=== PATIENT | male | born 2000 | race Caucasian/White ===

== ENCOUNTER 2021-02-28 20:34 | Emergency (ER) | payer OTHER, SELFPAY ==
--- NOTE | 2021-02-28 | ECG_ITS ---
Test Reason : CP Blood Pressure : / mmHG Vent. Rate : 052 BPM Atrial Rate : 052 BPM P-R Int : 130 ms QRS Dur : 088 ms QT Int : 394 ms P-R-T Axes : 057 037 032 degrees QTc Int : 366 ms Sinus bradycardia with sinus arrhythmia Early repolarization Otherwise normal ECG When compared with ECG of 27-MAR-2011 16:18, No significant changes seen Referred By: Generic ED Physician Electronically Signed By:Ken Cates
--- NOTE | ~2021-02-28 | CT_ITS ---
EXAMINATION: CT ANGIOGRAM OF THE CHEST WITH AND WITHOUT CONTRAST (CT PULMONARY ANGIOGRAM FOR PE) CLINICAL INFORMATION: Reason for Exam chest pain, diaphoresis COMPARISON: Radiograph 02/28/2021 TECHNIQUE: Prior to contrast administration, noncontrast localization images were obtained. Subsequently, multidetector volumetric imaging was performed from the thoracic inlet to below the diaphragms following the administration of 65 mL Omnipaque 350 intravenous contrast. No contrast reaction reported Sagittal, coronal, and MIP oblique sagittal reformatted images were obtained on the CT workstation, uploaded to PACS, and reviewed. This CT examination was performed using dose optimization techniques as appropriate, variously including the following: *Automated exposure control *Adjustment of mA and/or kV according to patient size (this includes techniques or standardized protocols for targeted exams where dose is matched to indication/reason for exam; i.e. extremities or head) *Use of iterative reconstruction technique Total exam dose-length product 286 mGy-cm FINDINGS: QUALITY OF STUDY/CONTRAST BOLUS: Satisfactory. PULMONARY ARTERIES: No central or segmental pulmonary emboli. THORACIC AORTA: No aneurysm or dissection. LUNG: No focal consolidation, nodules or masses. The central airways are patent. PLEURA: No pleural effusion or pneumothorax. MEDIASTINUM: Normal heart size. No pericardial effusion. No hilar or mediastinal lymphadenopathy. No evidence of septal bowing or right heart strain. CHEST WALL/AXILLA: No axillary or internal mammary lymphadenopathy. OSSEOUS STRUCTURES: No acute or suspicious osseous abnormality. UPPER ABDOMEN: Unremarkable. No reflux of contrast into the hepatic veins to suggest elevated right heart pressures. CT/CT angio chest PE protocol IMPRESSION: No pulmonary embolism or other acute intrathoracic abnormality. VTE: negative
--- NOTE | ~2021-02-28 | XR_ITS ---
EXAMINATION: XR CHEST CLINICAL INFORMATION: Chest pain COMPARISON: None TECHNIQUE: Frontal view of the chest was obtained. FINDINGS: No significant abnormality is noted involving the heart, lungs, mediastinum, bony thorax or soft tissues. XR/XR chest 1V IMPRESSION: Unremarkable examination.
[2021-02-28 20:45] VITALS: BP 148/69; PULSE 59; RESP 16; TEMP 36.6; O2SAT 98; BMI 25.0
[2021-02-28 22:19] VITALS: BP 120/71; PULSE 50; RESP 18; O2SAT 98
--- NOTE | 2021-02-28 22:37 | ED.CHESTPAIN ---
HPI - Chest Pain General Chief Complaint: Chest Pain Stated Complaint: Chest discomfort Time Seen by Provider: 02/28/21 22:19 Source: patient Mode of arrival: ambulatory History of Present Illness HPI narrative: 20-year-old male without significant past medical history who presents with onset of pinching/sharp left-sided chest pain that started approximately 7:00 p.m. this evening and states that it radiated into the right side of his chest and became worse with deep breathing and is associated with diaphoresis, nausea but denies any dizziness. In addition, patient denies any recent travel but states he has been drinking and smoking marijuana the previous evening. In addition, he endorses that he has a positive family history with an uncle who recently otherwise healthy but had an CT. Related Data Allergies Allergy/AdvReac Type Severity Reaction Status Date / Time morphine [MORPHINE] Allergy Severe ANAPHYLAXIS Unverified 07/26/20 17:41 morphine Allergy Unknown anaphylaxis Uncoded 03/23/13 00:00 Review of Systems Review of Systems: Pertinent positives and negatives as stated in HPI 10 point review systems is otherwise negative. PMFSH Past Medical History Source: nursing notes reviewed Medical History No known health problems Surgical History History of appendectomy Social History Social History Alcohol intake: current Alcohol intake frequency: a few times a month Alcohol type: beer Smoked in Last 30 Days: No Substance Use Type: Marijuana Substance Use Frequency: Daily Last Used Substance: Hours (ago) Advance Directives: No Physical Exam Vital Signs: Vital Signs: Last Vital Signs Temp 98.5 F 02/28/21 23:53 Pulse 53 03/01/21 02:17 Resp 16 03/01/21 02:17 BP 135/75 03/01/21 02:17 Pulse Ox 99 03/01/21 02:17 Body Mass Index 25.0 VITAL SIGNS: Reviewed. GENERAL: Well developed, well nourished, in no acute distress. HEAD: Normocephalic/atraumatic EYES: PERRLA, EOMI NOSE: Nares patent bilateral OROPHARYNX: no oral lesions noted, posterior pharynx clear NECK: Supple, no adenopathy LUNGS: Normal breath sounds. No adventitious sounds or accessory muscle use. SpO2<98> CARDIOVASCULAR: Regular rate and rhythm without noted murmurs ABDOMEN: Soft, non-tender, non-distended with bowel sounds. NEUROLOGIC: Alert and oriented x 4. Course Course Course Narrative: 20-year-old male with history and clinical presentation consistent with likely acid reflux secondary to alcohol consumption versus GERD and unlikely to be pneumonia/PE/cardiac ischemia and doubt pericarditis. On review of all investigations patient's D-dimer was noted to be elevated and subsequent CTA was negative for PE. Patient was informed of all results and discharged in stable condition. MDM - Chest Pain Lab Data Result diagrams: 03/01/21 01:00 Labs: Lab Results 02/28/21 03/01/21 03/01/21 Range/Units 23:05 00:01 01:00 D-Dimer 326 NG/ML Sodium 139 (135-145) mmol/L Potassium 4.2 (3.3-5.1) mmol/L Chloride 104 (96-108) mmol/L Carbon Dioxide 26 (22-29) mmol/L Anion Gap 13 (12-20) BUN 15 (9-16) mg/dL Creatinine 1.05 (0.5-1.4) mg/dL Estim Creat Clear Calc 104.0 Estimated GFR > 60 Random Glucose 86 (60-115) mg/dL Calcium 9.8 (8.4-10.2) mg/dL Troponin I High Sens < 3.5 (<3.5-35.0) ng/L ECG Data ECG #1: Attestation: I personally reviewed and interpreted this ECG as follows: Prior ECG tracings: available for review (03/27/2011) Interpretation: Sinus bradycardia, HR -52, no evidence of acute ischemia, WV/QRS/QTC are within normal limits. Discharge Plan Discharge Clinical Impression: Atypical chest pain, Acid reflux Patient Disposition: Home, Self-Care Instructions: Chest Pain (ED), Gastroesophageal Reflux Disease (ED), Diet for Stomach Ulcers and Gastritis (ED) Additional Instructions: Recommend [id number] Mylanta as directed on the outside packaging prior to meals to assist in further alleviation of your symptoms. Do not hesitate to return to the emergency department for any acute worsening of symptoms.
[2021-02-28 23:40] LABS: Troponin-I High Sensitivity < 3.5 ng/L (<3.5-35.0)
[2021-02-28 23:53] VITALS: BP 120/71; PULSE 86; RESP 17; TEMP 36.9; O2SAT 99
[2021-03-01 00:29] LABS: D Dimer 326 NG/ML
[2021-03-01 01:41] LABS: Anion Gap 13 (12-20); Blood Urea Nitrogen 15 mg/dL (9-16); Calcium 9.8 mg/dL (8.4-10.2); Carbon Dioxide 26 mmol/L (22-29); Chloride 104 mmol/L (96-108); Estimated Glomerular Filt Rate > 60; Glucose Random 86 mg/dL (60-115); Potassium 4.2 mmol/L (3.3-5.1); Sodium 139 mmol/L (135-145)
[2021-03-01 02:17] VITALS: BP 135/75; PULSE 53; RESP 16; O2SAT 99
[2021-03-01] MEDS: iohexoL 350 MG/ML 100 ML INFUS..BTL 65 ML IV (02:18)
== END 2021-03-01 03:06 | disposition home or self-care (01) ==
PROVIDERS: Emergency Provider Student in an Organized Health Care Education/Training Program; PCP Pediatrics
DX: R07.89 Other chest pain (principal); K21.9 Gastro-esophageal reflux disease without esophagitis; F12.90 Cannabis use, unspecified, uncomplicated
CPT/HCPCS: 36415; 71045; 71275; 80048; 84484; 85379; 93005; 99284; Q9967

== ENCOUNTER 2021-03-08 08:39 | Emergency (ER) | payer OTHER, SELFPAY ==
--- NOTE | ~2021-03-08 | XR_ITS ---
EXAMINATION: XR CHEST CLINICAL INFORMATION: Left-sided chest pain COMPARISON: Chest radiograph 02/28/2021 TECHNIQUE: 2 views of the chest were obtained. FINDINGS: The lungs are clear. There is no pneumothorax, airspace consolidation, pleural reaction, or effusion. The costophrenic sulci are clear. There is no airspace consolidation or groundglass opacity. The heart is normal in size. The hilar and mediastinal contours and bony structures are unremarkable. XR/XR chest 2V IMPRESSION: Unremarkable examination.
[2021-03-08 08:52] VITALS: BP 133/69; PULSE 57; RESP 18; TEMP 36.6; O2SAT 97; BMI 25.0
--- NOTE | 2021-03-08 09:06 | ECG_ITS ---
Test Reason : SOB Blood Pressure : / mmHG Vent. Rate : 052 BPM Atrial Rate : 052 BPM P-R Int : 134 ms QRS Dur : 090 ms QT Int : 410 ms P-R-T Axes : 058 038 030 degrees QTc Int : 381 ms Sinus bradycardia with sinus arrhythmia Otherwise normal ECG When compared with ECG of 28-FEB-2021 20:56, No significant change was found Referred By: Gianna Driver Electronically Signed By:TRACY TURPIN MD
--- NOTE | 2021-03-08 09:26 | ED.CHESTPAIN ---
HPI - Chest Pain General Chief Complaint: Upper Respiratory Symptoms Stated Complaint: SOB Time Seen by Provider: 03/08/21 08:57 Source: patient Mode of arrival: ambulatory Limitations: no limitations History of Present Illness HPI narrative: 20-year-old male with no significant past medical history with a past surgical history of an appendectomy presenting to the ED with complaints of left-sided chest pain that he describes as a pinching/sharp in sensation for the past 8 days. Patient was seen here on 02/28/2021 for same complaint. He reports the pain initially started in the midsternal chest and has radiated to the left chest/left axillary area and intermittently the pain intensifies. He reports when the pain intensifies he feels like he cannot catch his breath. He reports his left arm feels cold. He reports he also felt a pain in his left side of his neck yesterday. Reports he smokes marijuana daily and occasionally socially drinks alcohol. Denies drinking alcohol within the past few days. He denies any diaphoresis, fevers, chills, headaches, dizziness, orthopnea, dyspnea on exertion, palpitations, radiation of the chest pain to the back, back pain, nausea/vomiting/diarrhea, abdominal pain, constipation, lower extremity edema or calf tenderness, dysuria, hematuria, abnormal penile discharge or any other symptoms complaints or concerns at this time. 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 Denies history of cancer. Denies hypercoagulation disorder. Denies being on any estrogen. Denies recent surgery or immobilization. Patient denies being on any blood thinners. Patient denies any additional drug usage including cocaine. Patient was seen here on 02/28/2021 for same complaint and had a full workup including CTA of chest which was negative for PE or any other acute processes. MD complaint: chest pain Onset (ago): day(s) (Eight days) Timing of current episode: constant and still present Prior episodes: No Onset: other (Cannot recall) Pain location: substernal and left chest Pain radiation: other (Left axillary) Severity: moderate Quality: sharp (Pinching sensation) Relieving factors: nothing Exacerbating factors: nothing Associated symptoms: other (See above) Treatment prior to arrival: none Related Data Previous Rx's Medication Instructions Recorded diazepam [Valium] 5 mg PO TID PRN #14 tab 03/08/21 naproxen 500 mg PO BID PRN #10 tab 03/08/21 Allergies Allergy/AdvReac Type Severity Reaction Status Date / Time morphine [MORPHINE] Allergy Severe ANAPHYLAXIS Verified 03/08/21 09:15 morphine Allergy Unknown anaphylaxis Uncoded 03/23/13 00:00 Review of Systems Review of Systems: Constitutional : No Weight loss, No Fever, No Chills, No Night Sweats, No Fatigue, No Malaise ENT/Mouth : No Hearing loss, No Ear Pain, No Nasal Congestion, No Sinus Pain, No Hoarseness, No sore throat, No Rhinorrhea, No Swallowing Difficulty Eyes: No Eye Pain, No Swelling, No Redness, No Foreign Body, No Discharge, No Vision Changes Cardiovascular : + Chest Pain, + SOB, no Dyspnea on Exertion, No Orthopnea, No Edema, No extremity swelling, No Palpitations Respiratory : No Cough, No Sputum, No Wheezing, No Dyspnea Gastrointestinal : No Nausea, No Vomiting, No Diarrhea, No abdominal Pain, No Hematochezia, No Melena Genitourinary : No irregular bleeding, No Dysuria, No Urinary Frequency, No Hematuria, No Urinary Incontinence, No Urgency, No Flank Pain, No Urinary Flow Changes, No Hesitancy Musculoskeletal : No joint pain, No Myalgias, No Joint Swelling Skin : No Skin Lesions, No rash Neuro : No Weakness, No Numbness, No Paresthesias, No Loss of Consciousness, No Dizziness, No Headache Psych : No Anxiety/Panic, No Depression, No SI/HI/AH/VH Heme/Lymph: No Bruising, No Bleeding,No Lymphadenopathy Endocrine : No Polyuria, No Polydipsia, No Temperature Intolerance Yes all other systems are reviewed and are negative [facility] Past Medical History Attestation statement: The following information was validated with the patient. Medical History No known health problems Surgical History History of appendectomy Social History Social History Alcohol intake: current Alcohol intake frequency: does not drink Alcohol type: beer Smoking Status: Never smoker Use of substances other than those prescribed or required for medical reasons: Yes Substance Use Type: Marijuana Advance Directives: No Advance Directives Information Provided: No Physical Exam Vital Signs: Vital Signs: Last Vital Signs Temp 98 F 03/08/21 08:52 Pulse 49 L 03/08/21 14:06 Resp 16 03/08/21 14:06 BP 108/66 03/08/21 14:06 Pulse Ox 99 03/08/21 14:06 Body Mass Index 25.0 vital signs have been reviewed as normal and appeared to be correct. Blood pressure normal. Heart rate normal. Respiration rate normal. Temperature normal. Oxygen saturation normal. Appearance: Alert. Oriented X3. No acute distress. Head: Normal external exam. Normocephalic. Eyes: PERRLA. EOMI. Conjunctiva and sclera normal. Eyelids normal. ENT: Pharynx normal. Uvula midline. Moist mucous membranes. Neck: Normal inspection. Neck supple. FROM. No adenopathy. No meningeal signs. CVS: Normal heart rate and rhythm. Heart sound normal. No murmurs noted. Pulses normal throughout. Respiratory: No respiratory distress. Painless inspiration. Breath sounds normal. No wheezes/rales/rhonchi noted. Chest mild ttp to left chest wall No accessory muscle usage noted or decreased air movement noted. No rashes/lesion/signs of infection. Abdomen: Soft and nontender. Nondistended. No guarding. No rigidity. Bowel sounds normal in all 4 quadrants. No distention noted. No organomegaly noted. No visible injury noted. No rebound tenderness. Negative Rovsing sign. Negative obturator's sign. Negative psoas sign. Negative Collins sign. Back: Full range of motion noted. Skin: Skin warm and dry. Normal skin color. Normal skin turgor. No rashes/lesions/lacerations noted. Extremities: No lower extremity edema, No Calf tenderness, Extremities exhibit normal range of motion. Extremities nontender. Neuro: Oriented X 3. No motor deficit. No sensory deficit. Reflexes normal. Normal steady gait. Course Course Course Narrative: 14pm - labs obtained and patient had an elevated BUN and creatinine at 24/1.55 therefore he received 2 L of IV fluids and now his BUN and creatinine is 20/1.22. Most likely this was SPENCER related to dehydration. All other labs are within normal limits including troponin. - EKG was sinus bradycardia with sinus arrhythmia no acute ischemic changes were noted. - chest x-ray was negative for any acute processes. - patient reported mild symptomatic relief with the Flexeril therefore will DC home with symptomatic treatment instructions return if any new or worsening symptoms follow-up with primary care provider. Patient agrees with this plan. MDM - Chest Pain MDM Narrative Medical decision making narrative: 9:05am - 20 year old male with no significant past medical history he only uses marijuana and occasionally drinks presenting to the ED with complaints of left-sided chest pain for the past 8 days with associated shortness of breath. - on exam patient is alert and oriented x3. Not in any acute distress. No focal neuro deficits noted. Vital signs are stable within normal limits. Lungs clear to auscultation. CV RRR. Patient has left-sided reproducible chest tenderness. No rashes or signs of infection noted. - Concern for muscle strain versus costochondritis versus AK - less concern for PE as patient already had a CTA 8 days ago which was negative for PE or any other acute processes - Plan: Labs, chest x-ray, EKG. Provide naproxen and Valium then re-evaluate. Medical Records Data Attestation: I reviewed the patient's medical records. Lab Data Attestation: I reviewed the patient's lab results. Result diagrams: 03/08/21 09:59 03/08/21 13:13 Labs: Lab Results 03/08/21 03/08/21 03/08/21 Range/Units 09:55 09:58 09:58 WBC (4.8-10.8) X10*3/uL RBC (4.60-5.80) X10*6/uL Hgb (14.0-18.0) g/dl Hct (42-52) % MCV (80-98) fL MCH (27.0-33.0) pg MCHC (31.0-36.0) g/dl RDW (11.0-16.0) % Plt Count (160-400) X10*3/uL MPV (9.4-12.4) fL Immature Gran % (Auto) (0.0-0.4) % Neut % (Auto) (45-73) % Lymph % (Auto) (20-40) % [place] % (Auto) (2-11) % Eos % (Auto) (0-4) % Baso % (Auto) (0-2) % Lymph # (Auto) (1.2-4.9) X10*3/uL [place] # (Auto) (0.1-1.2) X10*3/uL Eos # (Auto) (0.0-0.4) X10*3/uL Baso # (Auto) (0.0-0.2) X10*3/uL Abs Immat Gran (auto) (0.00-0.03) X10*3/uL Absolute Neuts (auto) (2.0-8.3) X10*3/uL Absolute Nucleated RBC (0.0-0.012) X10*3/uL Nucleated RBC % (auto) (0.0-0.2) /100WBC PT 12.9 (10.8-13.0) SEC INR 1.1 (0.9-1.1) Sodium (135-145) mmol/L Potassium (3.3-5.1) mmol/L Chloride (96-108) mmol/L Carbon Dioxide (22-29) mmol/L Anion Gap (12-20) BUN (9-16) mg/dL Creatinine (0.5-1.4) mg/dL Estim Creat Clear Calc Estimated GFR Random Glucose (60-115) mg/dL Calcium (8.4-10.2) mg/dL Magnesium 2.4 (1.6-2.6) mg/dL Total Bilirubin 0.3 (0.0-1.0) mg/dL Direct Bilirubin < 0.2 (0.0-0.5) mg/dL AST 15 (5-37) U/L ALT 13 (0-40) U/L Alkaline Phosphatase 64 (39-117) U/L Troponin I High Sens (<3.5-35.0) ng/L Total Protein 7.5 (6.5-8.0) g/dL Albumin 4.4 (3.5-5.0) g/dL Coronavirus (PCR) NEGATIVE (Negative) Influenza Type A (PCR) NEGATIVE (Negative) Influenza Type B (PCR) NEGATIVE (Negative) RSV RNA Qual (PCR) NEGATIVE (Negative) 03/08/21 03/08/21 03/08/21 Range/Units 09:58 09:58 09:59 WBC 10.8 (4.8-10.8) X10*3/uL RBC 5.41 (4.60-5.80) X10*6/uL Hgb 15.2 (14.0-18.0) g/dl Hct 46.6 (42-52) % MCV 86.1 (80-98) fL MCH 28.1 (27.0-33.0) pg MCHC 32.6 (31.0-36.0) g/dl RDW 13.2 (11.0-16.0) % Plt Count 257 (160-400) X10*3/uL MPV 9.6 (9.4-12.4) fL Immature Gran % (Auto) 0.3 (0.0-0.4) % Neut % (Auto) 58.9 (45-73) % Lymph % (Auto) 30.0 (20-40) % [place] % (Auto) 9.0 (2-11) % Eos % (Auto) 1.3 (0-4) % Baso % (Auto) 0.5 (0-2) % Lymph # (Auto) 3.3 (1.2-4.9) X10*3/uL [place] # (Auto) 1.0 (0.1-1.2) X10*3/uL Eos # (Auto) 0.1 (0.0-0.4) X10*3/uL Baso # (Auto) 0.1 (0.0-0.2) X10*3/uL Abs Immat Gran (auto) 0.03 (0.00-0.03) X10*3/uL Absolute Neuts (auto) 6.4 (2.0-8.3) X10*3/uL Absolute Nucleated RBC 0.000 (0.0-0.012) X10*3/uL Nucleated RBC % (auto) 0.0 (0.0-0.2) /100WBC PT (10.8-13.0) SEC INR (0.9-1.1) Sodium 140 (135-145) mmol/L Potassium 4.0 (3.3-5.1) mmol/L Chloride 105 (96-108) mmol/L Carbon Dioxide 24 (22-29) mmol/L Anion Gap 15 (12-20) BUN 24 H D (9-16) mg/dL Creatinine 1.55 H (0.5-1.4) mg/dL Estim Creat Clear Calc 70.4 Estimated GFR 57 Random Glucose 93 (60-115) mg/dL Calcium 9.5 (8.4-10.2) mg/dL Magnesium (1.6-2.6) mg/dL Total Bilirubin 0.3 (0.0-1.0) mg/dL Direct Bilirubin (0.0-0.5) mg/dL AST 15 (5-37) U/L ALT 14 (0-40) U/L Alkaline Phosphatase 63 (39-117) U/L Troponin I High Sens < 3.5 (<3.5-35.0) ng/L Total Protein 7.6 (6.5-8.0) g/dL Albumin 4.4 (3.5-5.0) g/dL Coronavirus (PCR) (Negative) Influenza Type A (PCR) (Negative) Influenza Type B (PCR) (Negative) RSV RNA Qual (PCR) (Negative) 03/08/21 Range/Units 13:13 WBC (4.8-10.8) X10*3/uL RBC (4.60-5.80) X10*6/uL Hgb (14.0-18.0) g/dl Hct (42-52) % MCV (80-98) fL MCH (27.0-33.0) pg MCHC (31.0-36.0) g/dl RDW (11.0-16.0) % Plt Count (160-400) X10*3/uL MPV (9.4-12.4) fL Immature Gran % (Auto) (0.0-0.4) % Neut % (Auto) (45-73) % Lymph % (Auto) (20-40) % [place] % (Auto) (2-11) % Eos % (Auto) (0-4) % Baso % (Auto) (0-2) % Lymph # (Auto) (1.2-4.9) X10*3/uL [place] # (Auto) (0.1-1.2) X10*3/uL Eos # (Auto) (0.0-0.4) X10*3/uL Baso # (Auto) (0.0-0.2) X10*3/uL Abs Immat Gran (auto) (0.00-0.03) X10*3/uL Absolute Neuts (auto) (2.0-8.3) X10*3/uL Absolute Nucleated RBC (0.0-0.012) X10*3/uL Nucleated RBC % (auto) (0.0-0.2) /100WBC PT (10.8-13.0) SEC INR (0.9-1.1) Sodium 140 (135-145) mmol/L Potassium 4.1 (3.3-5.1) mmol/L Chloride 110 H (96-108) mmol/L Carbon Dioxide 24 (22-29) mmol/L Anion Gap 10 L (12-20) BUN 20 H (9-16) mg/dL Creatinine 1.22 (0.5-1.4) mg/dL Estim Creat Clear Calc 89.5 Estimated GFR > 60 Random Glucose 90 (60-115) mg/dL Calcium 8.3 L D (8.4-10.2) mg/dL Magnesium (1.6-2.6) mg/dL Total Bilirubin (0.0-1.0) mg/dL Direct Bilirubin (0.0-0.5) mg/dL AST (5-37) U/L ALT (0-40) U/L Alkaline Phosphatase (39-117) U/L Troponin I High Sens (<3.5-35.0) ng/L Total Protein (6.5-8.0) g/dL Albumin (3.5-5.0) g/dL Coronavirus (PCR) (Negative) Influenza Type A (PCR) (Negative) Influenza Type B (PCR) (Negative) RSV RNA Qual (PCR) (Negative) Imaging Data Chest x-ray: Attestation: I personally reviewed and interpreted this imaging study as follows: Radiologist's impression: FINDINGS: The lungs are clear. There is no pneumothorax, airspace consolidation, pleural reaction, or effusion. The costophrenic sulci are clear. There is no airspace consolidation or groundglass opacity. The heart is normal in size. The hilar and mediastinal contours and bony structures are unremarkable. XR/XR chest 2V IMPRESSION: Unremarkable examination. ECG Data ECG #1: Attestation: I personally reviewed and interpreted this ECG as follows: ECG interpretation date: 03/08/21 ECG interpretation time: 09:23 Interpretation: Sinus bradycardia with sinus arrhythmia with ventricular rate of 52 with a normal [place] interval normal QRS duration normal QT/QTC interval. No acute ischemic changes noted. Similar when compared to prior EKG on 02/28/2021. Critical Care Time Critical Care Time Critical Care Time: Yes Total Critical Care Time: 60 Attestation: I personally attest to this time spent taking care of the patient Discharge Plan Discharge Clinical Impression: Acute chest wall pain, Acute dehydration Patient Disposition: Home, Self-Care Instructions: Dehydration (ED), Chest Wall Pain (ED) Additional Instructions: Your repeat kidney function is within normal limits. Continue to drink plenty of fluids such as water or Gatorade. Return if any new or worsening symptoms and follow up with her primary care provider. Prescriptions: New diazepam [Valium] 5 mg tablet 5 mg PO TID PRN (Reason: muscle spasm) Qty: 14 RF: 0 naproxen 500 mg tablet 500 mg PO BID PRN (Reason: pain) Qty: 10 RF: 0 Referrals: Terrell Colvin [Primary Care Provider] - 2 days Stand Alone Forms: Work/School Release Print Language: Ukrainian
[2021-03-08] MEDS: NaPROXEN 500 MG TABLET PO (09:50)
[2021-03-08] MEDS: diazePAM 5 MG TABLET PO (09:51)
[2021-03-08 10:03] LABS: MANUAL DIFF FLAG NO
[2021-03-08 10:05] VITALS: PULSE 62; O2SAT 99
[2021-03-08 10:09] LABS: INTERNATIONAL NORM RATIO 1.1 (0.9-1.1); Prothrombin Time 12.9 SEC (10.8-13.0)
[2021-03-08 10:09] LABS: Basophils Absolute Auto 0.1 X10*3/uL (0.0-0.2); Basophils Percent Auto 0.5 % (0-2); Eosinophils Absolute Auto 0.1 X10*3/uL (0.0-0.4); Eosinophils Percent Auto 1.3 % (0-4); Hematocrit 46.6 % (42-52); Hemoglobin 15.2 g/dl (14.0-18.0); Imm Gran Abs Auto 0.03 X10*3/uL (0.00-0.03); Imm Gran Pct Auto 0.3 % (0.0-0.4); Lymphocytes Absolute Auto 3.3 X10*3/uL (1.2-4.9); Mean Corpuscular HGB Conc 32.6 g/dl (31.0-36.0); Mean Corpuscular Hemoglobin 28.1 pg (27.0-33.0); Mean Corpuscular Volume 86.1 fL (80-98); Mean Platelet Volume 9.6 fL (9.4-12.4); Neutrophils Absolute Auto 6.4 X10*3/uL (2.0-8.3); Neutrophils Percent Auto 58.9 % (45-73); Platelet Count 257 X10*3/uL (160-400); Red Blood Count 5.41 X10*6/uL (4.60-5.80); Red Cell Distribution Width 13.2 % (11.0-16.0); White Blood Count 10.8 X10*3/uL (4.8-10.8)
[2021-03-08 10:30] LABS: Alanine Aminotransferase 14 U/L (0-40); Albumin Level 4.4 g/dL (3.5-5.0); Alkaline Phosphatase 63 U/L (39-117); Anion Gap 15 (12-20); Aspartate Amino Transferase 15 U/L (5-37); Bilirubin Total 0.3 mg/dL (0.0-1.0); Blood Urea Nitrogen 24 mg/dL (9-16); Calcium 9.5 mg/dL (8.4-10.2); Carbon Dioxide 24 mmol/L (22-29); Chloride 105 mmol/L (96-108); Creatinine Clr Calc Pharmacy 70.4; Estimated Glomerular Filt Rate 57; Glucose Random 93 mg/dL (60-115); Sodium 140 mmol/L (135-145); Total Protein 7.6 g/dL (6.5-8.0)
[2021-03-08 10:31] LABS: Alanine Aminotransferase 13 U/L (0-40); Albumin Level 4.4 g/dL (3.5-5.0); Alkaline Phosphatase 64 U/L (39-117); Aspartate Amino Transferase 15 U/L (5-37); Bilirubin Direct < 0.2 mg/dL (0.0-0.5); Bilirubin Total 0.3 mg/dL (0.0-1.0); Magnesium 2.4 mg/dL (1.6-2.6); Total Protein 7.5 g/dL (6.5-8.0)
[2021-03-08 10:38] LABS: Troponin-I High Sensitivity < 3.5 ng/L (<3.5-35.0)
[2021-03-08 10:44] LABS: Influenza A PCR NEGATIVE (Negative); Influenza B PCR NEGATIVE (Negative); Resp Syncy Virus RNA Qual PCR NEGATIVE (Negative); SARS COV2 PCR INHOUSE NEGATIVE (Negative)
[2021-03-08 11:02] VITALS: BP 117/77; PULSE 50; RESP 20
[2021-03-08] MEDS: 0.9 % Sodium Chloride 1,000 ML 999 ML IVCONT ×2 (11:14→11:57)
[2021-03-08 13:55] LABS: Anion Gap 10 (12-20); Blood Urea Nitrogen 20 mg/dL (9-16); Calcium 8.3 mg/dL (8.4-10.2); Carbon Dioxide 24 mmol/L (22-29); Chloride 110 mmol/L (96-108); Creatinine Clr Calc Pharmacy 89.5; Estimated Glomerular Filt Rate > 60; Glucose Random 90 mg/dL (60-115); Potassium 4.1 mmol/L (3.3-5.1); Sodium 140 mmol/L (135-145)
[2021-03-08 14:06] VITALS: BP 108/66; PULSE 49; RESP 16; O2SAT 99
== END 2021-03-08 14:25 | disposition home or self-care (01) ==
PROVIDERS: Physician Assistant Medical; Emergency Provider Emergency Medicine; PCP Pediatrics
DX: R07.89 Other chest pain (principal); E86.0 Dehydration; R00.1 Bradycardia, unspecified; Z20.822 Contact with and (suspected) exposure to COVID-19; F12.90 Cannabis use, unspecified, uncomplicated
CPT/HCPCS: 0241U; 36415; 71046; 80048; 80053; 80076; 82248; 83735; 84484; 85025; 85610; 93005; 96360; 99285; 99291

== ENCOUNTER → 2023-07-01 14:21 | Outpatient (BNVA) | payer OTHER, SELFPAY | PROVIDERS: PCP Pediatrics; Visit Provider Physician Assistant Medical | DX: S39.012A Strain of muscle, fascia and tendon of lower back, initial encounter (principal); X50.0XXA Overexertion from strenuous movement or load, initial encounter | CPT/HCPCS: 99202 ==

== ENCOUNTER → 2023-07-03 11:06 | Outpatient (BNVA) | payer OTHER, SELFPAY | PROVIDERS: PCP Pediatrics; Visit Provider Physician Assistant Medical | DX: S39.012A Strain of muscle, fascia and tendon of lower back, initial encounter (principal); X50.0XXA Overexertion from strenuous movement or load, initial encounter | CPT/HCPCS: 99213 ==

== ENCOUNTER → 2023-07-07 11:12 | Outpatient (BNVA) | payer OTHER, SELFPAY | PROVIDERS: PCP Pediatrics; Visit Provider Physician Assistant Medical | DX: S33.9XXA Sprain of unspecified parts of lumbar spine and pelvis, initial encounter (principal); X50.0XXA Overexertion from strenuous movement or load, initial encounter | CPT/HCPCS: 99213 ==

== ENCOUNTER 2023-07-09 10:56 | Outpatient (RCR) | payer OTHER, SELFPAY ==
--- NOTE | 2023-07-09 11:37 | MHC.PT.EP ---
[facility] [place] Office [place] Office [place] Office [address] Yordan Zapata [address] [phone] F: [phone] F: [phone] F: [phone] F: [phone] Physical Therapy Plan of Care Date of Evaluation: Date of Surgery: Diagnosis: LS strain Assessment: 22 y/o male referred to PT with lumbar strain from work connection. 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 Examination shows limited lumbar AROM, slightly limited hip ER AROM, decreased HS/hip flexor/piriformis length, decreased core/hip strength, (+) JIMMY/squish tests, R anterior innominate, hypomobile and painful lumbar spine accessory mobilty, and pain. Recommend PT 2x/week for 4 weeks to address impairments, implement hEP, and optimize functional mobility. 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 Manual therapy to restore motion and function. Therapeutic exercise to improve strength and flexibility. Neuromuscular re-education for posture and balance. Therapeutic activities to return to functional activities of daily living. Electronically signed by: Maia Park PT Please sign and return to therapist. Thank you for your referral.
--- NOTE | 2023-08-20 08:40 | MHC.PT.DC ---
[facility] [place] [facility] [place] [facility] [place] Office [address] Yordan Zapata [address] [phone] F: [phone] F: [phone] F: [phone] F: [phone] Physical Therapy Discharge Report Diagnosis: LS strain Date of Surgery: Date of Evaluation: 07/09/23 Date of Discharge: 08/20/23 Treatments to Date: 1 Cancellations to Date: 0 No Shows to Date: 0 Discharge Status: Patient Elected to Stop Discharge Summary: Pt had to cancel initial treatment sessions following evaluation d/t having COVID. Then he called to self discharge after seeing MD and RTW. D/c chart at this time Electronically signed by: Maia Park PT Please sign and return to therapist. Thank you for your referral.
== END 2023-08-20 08:41 | disposition home or self-care (01) ==
LOC: HO.PT 10:56
PROVIDERS: Visit Provider Physician Assistant Medical
DX: S39.012D Strain of muscle, fascia and tendon of lower back, subsequent encounter (principal)
CPT/HCPCS: 97110; 97140; 97161

== ENCOUNTER → 2023-07-22 12:33 | Outpatient (BNVA) | payer OTHER, SELFPAY | PROVIDERS: Visit Provider Physician Assistant Medical | DX: S39.012D Strain of muscle, fascia and tendon of lower back, subsequent encounter (principal); X50.0XXD Overexertion from strenuous movement or load, subsequent encounter | CPT/HCPCS: 99213 ==

== ENCOUNTER 2023-10-28 12:38 | Emergency (ER) | payer OTHER, SELFPAY ==
--- NOTE | ~2023-10-28 | XR_ITS ---
EXAMINATION: XR CHEST CLINICAL INFORMATION: Chest pain COMPARISON: 03/08/2021 TECHNIQUE: Frontal view of the chest was obtained. FINDINGS: No significant abnormality is noted involving the heart, lungs, mediastinum, bony thorax or soft tissues. XR/XR chest 1V IMPRESSION: Unremarkable examination.
--- NOTE | 2023-10-28 12:41 | ECG_ITS ---
Test Reason : CHEST PAIN Blood Pressure : / mmHG Vent. Rate : 059 BPM Atrial Rate : 059 BPM P-R Int : 134 ms QRS Dur : 092 ms QT Int : 426 ms P-R-T Axes : 057 021 003 degrees QTc Int : 421 ms Sinus bradycardia with sinus arrhythmia Otherwise normal ECG When compared with ECG of 08-MAR-2021 09:32, No significant change was found Referred By: Generic ED Physician Electronically Signed By:TRACY TURPIN MD
[2023-10-28 13:14] VITALS: BP 150/81; PULSE 56; RESP 19; TEMP 36.6; O2SAT 98; BMI 29.0
[2023-10-28 13:16] LABS: MANUAL DIFF FLAG NO
[2023-10-28 13:17] LABS: Basophils Percent Auto 0.5 % (0-2); Eosinophils Absolute Auto 0.2 X10*3/uL (0.0-0.4); Eosinophils Percent Auto 2.1 % (0-4); Hematocrit 44.3 % (42.0-52.0); Hemoglobin 14.7 g/dl (14.0-18.0); Imm Gran Abs Auto 0.02 X10*3/uL (0.00-0.03); Imm Gran Pct Auto 0.2 % (0.0-0.4); Lymphocytes Absolute Auto 2.1 X10*3/uL (1.2-4.9); Lymphocytes Percent Auto 24.2 % (20-40); Mean Corpuscular HGB Conc 33.2 g/dl (31.0-36.0); Mean Corpuscular Hemoglobin 27.6 pg (27.0-33.0); Mean Corpuscular Volume 83.1 fL (80.0-98.0); Mean Platelet Volume 9.6 fL (9.4-12.4); Monocytes Absolute Auto 0.8 X10*3/uL (0.1-1.2); Monocytes Percent Auto 9.4 % (2-11); Neutrophils Absolute Auto 5.4 x10*3/uL (2.0-8.3); Neutrophils Percent Auto 63.6 % (45-73); Platelet Count 268 X10*3/uL (160-400); Red Blood Count 5.33 X10*6/uL (4.60-5.80); Red Cell Distribution Width 13.6 % (11.0-16.0); White Blood Count 8.5 X10*3/uL (4.8-10.8)
--- NOTE | 2023-10-28 13:19 | ED_ITS ---
HPI - Chest Pain General Chief Complaint: Chest Pain Stated Complaint: Chest Pain x 2 Days Time Seen by Provider: 10/28/23 17:04 Source: patient Mode of arrival: ambulatory Limitations: no limitations History of Present Illness HPI narrative: Patient is a 23 year old assigned male at with no reported medical history presenting to the emergency department today with chest pain and a headache. Patient states that 2 days ago he was playing video games when he noticed central chest pain and a headache. Patient states that nothing makes it worse and nothing makes it better. Patient denies any dizziness, lightheadedness, abdominal pain, nausea, vomiting, fever, chills, blurry vision, double vision, loss of vision, difficulty breathing, shortness of breath, back pain, night sweats, pain with urination, increased urinary frequency, increased urinary urgency, blood in his urine or stool, syncope or a near syncopal episode, recent trauma or falls, bowel incontinence, bladder incontinence, bowel retention, bladder retention, or any other complaints at this time. MD complaint: chest pain Onset (ago): day(s) (2) Pain radiation: none Related Data Previous Rx's Medication Instructions Recorded diazepam 5 mg tablet (Valium) 5 mg PO TID PRN muscle spasm #14 03/08/21 tabs cyclobenzaprine 10 mg tablet 10 mg PO TID PRN muscle spasm #14 07/01/23 tabs naproxen 500 mg tablet 500 mg PO BID PRN pain #14 tabs 07/01/23 Allergies Allergy/AdvReac Type Severity Reaction Status Date / Time morphine [MORPHINE] Allergy Severe ANAPHYLAXIS Verified 10/28/23 13:14 morphine Allergy Unknown anaphylaxis Uncoded 10/28/23 13:14 Review of Systems 2 Constitutional: Constitutional: Reports no additional constitutional complaints, Denies chills, Denies fever(s), Reports headache(s) and Denies night sweats Eyes: Eyes: Reports no additional eye complaints, Denies blurry vision, Denies change in vision, Denies diplopia, Denies eye discharge, Denies loss of vision and Denies eye pain ENT: Denies dizziness and Reports headache(s) Cardiovascular: Cardiovascular: Reports no additional cardiovascular complaints, Reports chest pain, Denies lightheadedness, Denies Loss of Consciousness and Denies dyspnea Respiratory: Respiratory: Reports no additional respiratory complaints and Denies dyspnea Gastrointestinal: Gastrointestinal: Reports no additional gastrointestinal complaints, Denies abdominal pain, Denies melena, Denies hematochezia, Denies change in bowel habits and Denies change in stool character Genitourinary: Genitourinary: Reports no additional male genitourinary complaints, Denies hematuria, Denies oliguria, Denies difficulty urinating, Denies dysuria, Denies urinary frequency, Denies urinary hesitancy, Denies urinary incontinence and Denies urinary urgency Musculoskeletal: Musculoskeletal: Reports no additional musculoskeletal complaints, Denies numbness and Denies tingling Neurologic: Denies dizziness, Reports headache(s), Denies loss of vision, Denies numbness and Denies tingling Psychiatric: Psychiatric: Reports no additional psychiatric complaints Endocrine: Endocrine: Reports no additional endocrine complaints Hematologic/Lymphatic: Hematologic/Lymphatic: Reports no additional hematologic/lymphatic complaints Allergic/Immunologic: Allergic/Immunologic: Reports no additional allergic/immunologic complaints PMFSH Past Medical History Attestation statement: The following information was validated with the patient. Source: old records reviewed and nursing notes reviewed Medical History No known health problems Surgical History History of appendectomy Social History Social History Alcohol intake: current Alcohol intake frequency: does not drink Alcohol type: beer Substance Use Type: Marijuana Advance Directives: No Advance Directives Information Provided: No Physical Exam 2 Vital Signs: Vital Signs: Last Vital Signs Temp 98 F 10/28/23 13:14 Pulse 58 10/28/23 17:02 Resp 18 10/28/23 17:02 BP 117/61 10/28/23 17:02 Pulse Ox 98 10/28/23 17:02 O2 Del Method Room Air 10/28/23 17:02 BMI result Body Mass Index 29.0 Const: General: cooperative, no acute distress, alert and awake Nutritional Appearance: well nourished Orientation/consciousness: patient oriented x3 Limitations: no limitations HEENT: Head: Yes normal to inspection and Yes atraumatic Ears: hearing grossly normal bilaterally and external ears normal General nose exam: Normal external nose present, no nasal discharge noted and no epistaxis Face and sinus: Yes normal facial exam, No abrasion and No laceration Mouth: Normal oral and palatal mucosa present, no drooling and no muffled voice Eyes: General: appearance normal, both eyes and all related structures P eriorbital: periorbital findings normal Eyelids: Yes eyelids normal C onjunctivae: conjunctivae normal Pupils: Equal, round and reactive pupils present EOM: EOMs intact bilaterally Neck: Neck: Yes normal visual inspection, Yes full ROM and Yes no lymphadenopathy Chest: Chest palpation & inspection: normal inspection of the chest Resp: Effort & Inspection: normal respiratory effort and able to speak in complete sentences Auscultation: clear to auscultation bilaterally Cardio: Rate: regular rate Rhythm: regular rhythm GI: Inspection: Yes normal to inspection Neuro: General: patient oriented x3 and moves all extremities Cranial nerves: Yes Equal, round and reactive pupils present Cognition (Neuro): n ormal cognition Motor exam (neuro): 5/5 motor strength present throughout Sensory Exam: Normal double simultaneous stimulation for sensation C oordination: [id number] test normal Extrem: General: Yes normal to inspection, Yes full ROM and Yes capillary refill normal Psych: Appearance: grossly normal Mental Status: mental status grossly normal Affect: normal affect Attitude: cooperative Thought process: N ormal thought process present Thought content: Normal thought content present Insight: Good insight present (Psych) Course Course Course Narrative: RME: 23 yold female presents to the ED for chest pain tingling in all extremites, headache, and SoB for the past two day. patient states mild cough. labs and ekg, chest xray ordered. Medical Decision Making Medical Decision Making [facility] Narrative: Patient is a 23 year old assigned male at with no reported medical history presenting to the emergency department today with chest pain and a headache. Patient's physical exam was unremarkable. Patient's blood work was unremarkable. Patient's EKG was unremarkable. Patient's chest x-ray showed no acute process. I explained my physical exam findings as well as all test results to the patient. I answered all questions asked by the patient. I stressed the importance of the patient taking his medication as prescribed. I stressed the importance of the patient following up with his primary care provider. I stressed the importance of the patient returning to the emergency department immediately if his symptoms were to worsen or if he were to develop any dizziness, shortness of breath, difficulty breathing, chest pain, blurry vision, loss of vision, nausea, vomiting, abdominal pain, fever, chills, back pain, or any other complaints. Patient verbalized agreement and understanding with this treatment plan and discharge. Differential Diagnosis Differential Diagnoses: The differential diagnosis associated with the presentation includes Chest pain NSTEMI STEMI Viral illness COVID-19 Influenza RSV Admission/Observation Consideration of admission/observation: Escalation of care including admission/observation considered Patient would have been admitted to the hospital had his work up had any findings where hospital admission was appropriate and his clinical presentation warranted hospital admission. Lab Data [facility] Lab Attestation statement: I reviewed the patient's lab results. My interpretation of these results are in the [facility] Rationale portion of this note. 10/28/23 13:11 10/28/23 13:11 Labs: Lab Results 10/28/23 10/28/23 Range/Units 13:11 17:11 WBC 8.5 (4.8-10.8) X10*3/uL RBC 5.33 (4.60-5.80) X10*6/uL Hgb 14.7 (14.0-18.0) g/dl Hct 44.3 (42.0-52.0) % MCV 83.1 (80.0-98.0) fL MCH 27.6 (27.0-33.0) pg MCHC 33.2 (31.0-36.0) g/dl RDW 13.6 (11.0-16.0) % Plt Count 268 (160-400) X10*3/uL MPV 9.6 (9.4-12.4) fL Immature Gran % (Auto) 0.2 (0.0-0.4) % Neut % (Auto) 63.6 (45-73) % Lymph % (Auto) 24.2 (20-40) % [place] % (Auto) 9.4 (2-11) % Eos % (Auto) 2.1 (0-4) % Baso % (Auto) 0.5 (0-2) % Lymph # (Auto) 2.1 (1.2-4.9) X10*3/uL [place] # (Auto) 0.8 (0.1-1.2) X10*3/uL Eos # (Auto) 0.2 (0.0-0.4) X10*3/uL Baso # (Auto) 0.0 (0.0-0.2) X10*3/uL Abs Immat Gran (auto) 0.02 (0.00-0.03) X10*3/uL Absolute Neuts (auto) 5.4 (2.0-8.3) x10*3/uL Absolute Nucleated RBC 0.000 (0.0-0.012) X10*3/uL Nucleated RBC % (auto) 0.0 (0.0-0.2) /100WBC Sodium 141 (135-145) mmol/L Potassium 3.6 (3.3-5.1) mmol/L Chloride 108 (96-108) mmol/L Carbon Dioxide 25 (22-29) mmol/L Anion Gap 12 (12-20) BUN 18 H (9-16) mg/dL Creatinine 1.25 (0.5-1.4) mg/dL Estim Creat Clear Calc 94.3 Estimated GFR > 60 Random Glucose 86 (60-115) mg/dL Calcium 9.5 D (8.4-10.2) mg/dL Troponin I High Sens < 2.7 (<3.5-35.0) ng/L Influenza Type A (PCR) NEGATIVE (Negative) Influenza Type B (PCR) NEGATIVE (Negative) RSV RNA Qual (PCR) NEGATIVE (Negative) SARS-CoV-2 RNA (RT-PCR) NEGATIVE (Negative) Independent Interpretation I performed an independent interpretation of an: EKG and Plain X-Ray Interpretation: My interpretation is in agreement with the radiologist's impression of this imaging study. - EXAMINATION: XR CHEST CLINICAL INFORMATION: Chest pain COMPARISON: 03/08/2021 TECHNIQUE: Frontal view of the chest was obtained. FINDINGS: No significant abnormality is noted involving the heart, lungs, mediastinum, bony thorax or soft tissues. XR/XR chest 1V IMPRESSION: Unremarkable examination. Dictated By: Michael Ahumada MD Signed By: Electronically signed by Michael Ahumada MD 10/28/23 1519 - Vent. Rate: 059 BPM Atrial Rate: 059 BPM P-R Int: 134 ms QRS Dur: 092 ms QT Int: 426 ms P-R-T Axes: 057 021 003 degrees QTc Int: 421 ms Sinus bradycardia with sinus arrhythmia Otherwise normal ECG When compared with ECG of 08-MAR-2021 09:32, No significant change was found Electronically Signed By:TADEO CURRY MD Dictated By: Tadeo Curry MD Signed By: Electronically signed by Tadeo Curry MD 10/28/23 9990 Radiology Impression Discussion of test interpretation with radiology: I have reviewed the radiologist's reading. Discharge Plan Discharge Clinical Impression: Viral illness Patient Disposition: Home, Self-Care Instructions: Viral Syndrome (ED) Additional Instructions: Follow up with your primary care provider. Return to the emergency department immediately if your symptoms worsen or if you develop any dizziness, shortness of breath, difficulty breathing, chest pain, blurry vision, loss of vision, nausea, vomiting, abdominal pain, fever, chills, back pain, or any other complaints. Prescriptions: No Action diazepam [Valium] 5 mg tablet 5 mg PO TID PRN (Reason: muscle spasm) Qty: 14 0RF naproxen 500 mg tablet 500 mg PO BID PRN (Reason: pain) Qty: 14 0RF cyclobenzaprine 10 mg tablet 10 mg PO TID PRN (Reason: muscle spasm) Qty: 14 0RF Ref[place]: [facility] [place]] (Call to establish and follow up with a primary care provider. If you already have a primary care provider, please follow up with them.) [facility] [Provider Group] (Call to establish and follow up with a primary care provider. If you already have a primary care provider, please follow up with them.) [facility] [Provider Group] (Call to establish and follow up with a primary care provider. If you already have a primary care provider, please follow up with them.) Stand Alone Forms: Work/School Release Interventions: ED Discharge Assessment Last Done: 10/28/23 18:27 Discharge Date/Time: 10/28/23 18:27 Print Language: Palauan
[2023-10-28 13:30] LABS: Anion Gap 12 (12-20); Blood Urea Nitrogen 18 mg/dL (9-16); Calcium 9.5 mg/dL (8.4-10.2); Carbon Dioxide 25 mmol/L (22-29); Chloride 108 mmol/L (96-108); Creatinine Clr Calc Pharmacy 94.3; Estimated Glomerular Filt Rate > 60; Glucose Random 86 mg/dL (60-115); Potassium 3.6 mmol/L (3.3-5.1); Sodium 141 mmol/L (135-145)
[2023-10-28 13:39] LABS: Troponin-I High Sensitivity < 2.7 ng/L (<3.5-35.0)
[2023-10-28 17:02] VITALS: BP 117/61; PULSE 58; RESP 18; O2SAT 98
[2023-10-28 18:02] LABS: Influenza A PCR NEGATIVE (Negative); Influenza B PCR NEGATIVE (Negative); Resp Syncy Virus RNA Qual PCR NEGATIVE (Negative); SARS COV2 PCR INHOUSE NEGATIVE (Negative)
== END 2023-10-28 18:27 | disposition home or self-care (01) ==
PROVIDERS: Physician Assistant Medical; Emergency Provider Emergency Medicine
DX: B34.9 Viral infection, unspecified (principal); R07.89 Other chest pain; R00.1 Bradycardia, unspecified; Z79.899 Other long term (current) drug therapy; Z20.822 Contact with and (suspected) exposure to COVID-19; Z20.828 Contact with and (suspected) exposure to other viral communicable diseases
CPT/HCPCS: 0241U; 36415; 71045; 80048; 84484; 85025; 93005; 99283; 99284

== ENCOUNTER → 2023-10-28 12:41 | Outpatient (BNV) | payer OTHER, SELFPAY | PROVIDERS: Emergency Provider Emergency Medicine; Visit Provider Internal Medicine Cardiovascular Disease | DX: R00.1 Bradycardia, unspecified (principal) | CPT/HCPCS: 93010 ==

== ENCOUNTER 2023-11-05 03:33 | Emergency (ER) | payer OTHER, SELFPAY ==
[2023-11-05 03:37] VITALS: BP 150/78; PULSE 70; RESP 16; TEMP 36.6; O2SAT 98; BMI 28.2
[2023-11-05 04:47] LABS: IDNOW Serial# 08D9AD1C; Strep A Nucleic Acid Negative (Negative)
[2023-11-05 04:52] LABS: COVID-19 Test Negative (Negative); IDNOW Serial# BCCEAD1C
[2023-11-05 04:53] LABS: IDNOW Serial# 9DB6401D; Influenza A Negative (Negative); Influenza B2 Negative (Negative)
--- NOTE | 2023-11-05 05:10 | ED.HA ---
HPI - Headache General Chief Complaint: Headache Stated Complaint: head pain Time Seen by Provider: 11/05/23 04:52 Source: patient Mode of arrival: ambulatory History of Present Illness HPI Narrative: 23M p/w headache that is unilateral(right) with some but is at the tibia but otherwise denies fever, chills, nausea, vomiting and denies any traumatic injury. No family history of migraines. Related Data Previous Rx's Medication Instructions Recorded diazepam 5 mg tablet (Valium) 5 mg PO TID PRN muscle spasm #14 03/08/21 tabs cyclobenzaprine 10 mg tablet 10 mg PO TID PRN muscle spasm #14 07/01/23 tabs naproxen 500 mg tablet 500 mg PO BID PRN pain #14 tabs 07/01/23 Allergies Allergy/AdvReac Type Severity Reaction Status Date / Time morphine [MORPHINE] Allergy Severe ANAPHYLAXIS Verified 11/05/23 04:10 morphine Allergy Unknown anaphylaxis Uncoded 11/05/23 04:10 Review of Systems Review of Systems: Pertinent positives and negatives as stated in HPI PMFSH Past Medical History Source: nursing notes reviewed Medical History No known health problems Surgical History History of appendectomy Social History Social History Alcohol intake: current Alcohol intake frequency: a few times a week Alcohol type: beer Smoked in Last 30 Days: Yes Use of substances other than those prescribed or required for medical reasons: Yes Substance Use Type: Marijuana Advance Directives: No Advance Directives Information Provided: No Physical Exam Vital Signs: Vital Signs: Last Vital Signs Temp 97.8 F 11/05/23 03:37 Pulse 60 11/05/23 05:51 Resp 14 11/05/23 05:51 BP 111/53 L 11/05/23 05:51 Pulse Ox 99 11/05/23 05:51 O2 Del Method Room Air 11/05/23 05:51 BMI result Body Mass Index 28.2 VITAL SIGNS: Reviewed. GENERAL: Well developed, well nourished, in no acute distress. HEAD: Normocephalic/atraumatic EYES: PERRLA, EOMI EARS: Ext canals without abnormality, TMs non-bulging and non-erythematous NOSE: Nares patent bilateral OROPHARYNX: no oral lesions noted, posterior pharynx clear and non-erythematous without noted tonsillar enlargement/erythema/exudates NECK: Supple, no adenopathy LUNGS: Normal breath sounds. No adventitious sounds or accessory muscle use. SpO2<99> CARDIOVASCULAR: Regular rate and rhythm without noted murmurs ABDOMEN: Soft, non-tender, non-distended with bowel sounds. MUSCULOSKELETAL: No tenderness, deformities, or effusions noted on gross inspection. EXTREMITIES: No cyanosis, clubbing or edema. SKIN: Inspection of the skin reveals no rashes NEUROLOGIC: Alert and oriented x 4. Strength and sensation to light touch were grossly intact x 4. Medications Administered Discontinued Medications Generic Name Dose Route Start Last Admin Trade Name Peterq PRN Reason Stop Dose Admin Acetaminophen 975 mg 11/05/23 04:24 11/05/23 05:27 Acetaminophen 325 Mg Tablet PO 11/05/23 04:25 975 mg ONCE ONE Administration Acetaminophen/Butalbital/Caffeine 1 tab 11/05/23 06:00 11/05/23 06:11 Butalb/Acetamin/Caff 50/325/40 Tablet PO 11/05/23 06:01 1 tab ONCE ONE Administration Ibuprofen 400 mg 11/05/23 04:24 11/05/23 05:27 Ibuprofen 400 Mg Tablet PO 11/05/23 04:25 400 mg ONCE ONE Administration Medical Decision Making Medical Decision Making [facility] Narrative: 23-year-old male with history and clinical presentation, DDX: General headache, migraine headache, viral illness, dehydration, no clinical suspicion for intracranial pathology I reviewed all investigations and hematologic indices are grossly within normal limits and there are no derangements. Chemistry indices are grossly within normal limits and there are no significant derangements. Viral testing is negative for COVID-19/influenza. In addition, strep is negative as well. Patient received 1 L of IV fluids, on 175 mg of Tylenol/400 mg of ibuprofen and a Fioricet and states that his pain has significantly improved down to 2/10. He is otherwise discharged home with recommendations for him to follow-up with his primary care provider. Differential Diagnosis Differential Diagnoses: The differential diagnosis associated with the presentation includes Please see the discussion Admission/Observation Consideration of admission/observation: Escalation of care including admission/observation considered Please see the discussion above Lab Data [facility] Lab Attestation statement: I reviewed the patient's lab results. Please see the discussion above 11/05/23 05:48 11/05/23 05:48 Labs: Lab Results 11/05/23 11/05/23 Range/Units 04:32 05:48 WBC 10.5 (4.8-10.8) X10*3/uL RBC 5.35 (4.60-5.80) X10*6/uL Hgb 14.7 (14.0-18.0) g/dl Hct 44.2 (42.0-52.0) % MCV 82.6 (80.0-98.0) fL MCH 27.5 (27.0-33.0) pg MCHC 33.3 (31.0-36.0) g/dl RDW 13.2 (11.0-16.0) % Plt Count 285 (160-400) X10*3/uL MPV 9.7 (9.4-12.4) fL Immature Gran % (Auto) 0.4 (0.0-0.4) % Neut % (Auto) 63.1 (45-73) % Lymph % (Auto) 26.1 (20-40) % [place] % (Auto) 7.8 (2-11) % Eos % (Auto) 2.0 (0-4) % Baso % (Auto) 0.6 (0-2) % Lymph # (Auto) 2.7 (1.2-4.9) X10*3/uL [place] # (Auto) 0.8 (0.1-1.2) X10*3/uL Eos # (Auto) 0.2 (0.0-0.4) X10*3/uL Baso # (Auto) 0.1 (0.0-0.2) X10*3/uL Abs Immat Gran (auto) 0.04 H (0.00-0.03) X10*3/uL Absolute Neuts (auto) 6.6 (2.0-8.3) x10*3/uL Absolute Nucleated RBC 0.000 (0.0-0.012) X10*3/uL Nucleated RBC % (auto) 0.0 (0.0-0.2) /100WBC Sodium 140 (135-145) mmol/L Potassium 3.9 (3.3-5.1) mmol/L Chloride 106 (96-108) mmol/L Carbon Dioxide 23 (22-29) mmol/L Anion Gap 15 (12-20) BUN 16 (9-16) mg/dL Creatinine 1.32 (0.5-1.4) mg/dL Estim Creat Clear Calc 88.2 Estimated GFR > 60 Random Glucose 110 (60-115) mg/dL Calcium 9.4 (8.4-10.2) mg/dL Total Bilirubin 0.2 (0.0-1.0) mg/dL AST 29 (5-37) U/L ALT 33 (0-40) U/L Alkaline Phosphatase 63 (39-117) U/L Total Protein 8.4 H (6.5-8.0) g/dL Albumin 4.3 (3.5-5.0) g/dL COVID-19 (NELIDA) Negative (Negative) COVID-19 Clin Com See Note Influenza Type A (ARIAS) Negative (Negative) Influenza Type B (ARIAS) Negative (Negative) Influenza A & B Note See Note S. pyogenes GrpA ARIAS Negative (Negative) External Record Review External record reviewed: Outpatient record, Prior outpatient labs and Prior outpatient radiology Discharge Plan Discharge Clinical Impression: Headache Patient Disposition: Home, Self-Care Instructions: General Headache (ED) Additional Instructions: 1. Tylenol 1000 mg, orally, every 6 hours as needed for pain control. Do not exceed 4000 mg within 24 hours. 2. Ibuprofen 400 mg, orally with milk or food, every 6 hours as needed for pain control. 3. Increase the amount of water intake. Be cautious with the amount of caffeine intake. Recommend to keep a headache journal 4. Follow-up with your primary care doctor. Return to the ER for any worsening symptoms. Prescriptions: No Action diazepam [Valium] 5 mg tablet 5 mg PO TID PRN (Reason: muscle spasm) Qty: 14 0RF naproxen 500 mg tablet 500 mg PO BID PRN (Reason: pain) Qty: 14 0RF cyclobenzaprine 10 mg tablet 10 mg PO TID PRN (Reason: muscle spasm) Qty: 14 0RF
[2023-11-05] MEDS: Acetaminophen 325 MG TABLET 975 MG PO (05:27)
[2023-11-05] MEDS: Ibuprofen 400 MG TABLET PO (05:27)
--- NOTE | 2023-11-05 05:36 | PC.NURSE ---
pt medicated according to mar. pt reports to this rn onset of blurred vision and R sided facial numbness. pt denies hx migraines reports hx anxiety. pt placed on manager cardiac. 20 g in placed in L ac. dr potts made aware
[2023-11-05 05:51] VITALS: BP 111/53; PULSE 60; RESP 14; O2SAT 99
[2023-11-05 05:57] LABS: MANUAL DIFF FLAG NO
[2023-11-05 05:58] LABS: Basophils Absolute Auto 0.1 X10*3/uL (0.0-0.2); Basophils Percent Auto 0.6 % (0-2); Eosinophils Absolute Auto 0.2 X10*3/uL (0.0-0.4); Hematocrit 44.2 % (42.0-52.0); Hemoglobin 14.7 g/dl (14.0-18.0); Imm Gran Abs Auto 0.04 X10*3/uL (0.00-0.03); Imm Gran Pct Auto 0.4 % (0.0-0.4); Lymphocytes Absolute Auto 2.7 X10*3/uL (1.2-4.9); Lymphocytes Percent Auto 26.1 % (20-40); Mean Corpuscular HGB Conc 33.3 g/dl (31.0-36.0); Mean Corpuscular Hemoglobin 27.5 pg (27.0-33.0); Mean Corpuscular Volume 82.6 fL (80.0-98.0); Mean Platelet Volume 9.7 fL (9.4-12.4); Monocytes Absolute Auto 0.8 X10*3/uL (0.1-1.2); Monocytes Percent Auto 7.8 % (2-11); Neutrophils Absolute Auto 6.6 x10*3/uL (2.0-8.3); Neutrophils Percent Auto 63.1 % (45-73); Platelet Count 285 X10*3/uL (160-400); Red Blood Count 5.35 X10*6/uL (4.60-5.80); Red Cell Distribution Width 13.2 % (11.0-16.0); White Blood Count 10.5 X10*3/uL (4.8-10.8)
[2023-11-05] MEDS: Butalb/Acetamin/Caff 50/325/40 TABLET 1 TAB PO (06:11)
[2023-11-05 06:19] LABS: Alanine Aminotransferase 33 U/L (0-40); Albumin Level 4.3 g/dL (3.5-5.0); Alkaline Phosphatase 63 U/L (39-117); Anion Gap 15 (12-20); Aspartate Amino Transferase 29 U/L (5-37); Bilirubin Total 0.2 mg/dL (0.0-1.0); Blood Urea Nitrogen 16 mg/dL (9-16); Calcium 9.4 mg/dL (8.4-10.2); Carbon Dioxide 23 mmol/L (22-29); Chloride 106 mmol/L (96-108); Creatinine Clr Calc Pharmacy 88.2; Estimated Glomerular Filt Rate > 60; Glucose Random 110 mg/dL (60-115); Potassium 3.9 mmol/L (3.3-5.1); Sodium 140 mmol/L (135-145); Total Protein 8.4 g/dL (6.5-8.0)
--- NOTE | 2023-11-05 07:23 | PC.NURSE ---
assumed care of pt at 0700. pt a&o x4, pleasant, calm, and cooperative. pt reports feeling much better, rating his migraine 1/10 pain. currently resting quietly on stretcher watching tv in no apparent distress. rr even/unlabored. call angel within reach. plan of care ongoing.
== END 2023-11-05 07:31 | disposition home or self-care (01) ==
PROVIDERS: Emergency Provider Student in an Organized Health Care Education/Training Program
DX: R51.9 Headache, unspecified (principal); Z11.52 Encounter for screening for COVID-19; Z20.822 Contact with and (suspected) exposure to COVID-19; Z79.899 Other long term (current) drug therapy
CPT/HCPCS: 36415; 80053; 85025; 87502; 87635; 87651; 99283; 99284

== ENCOUNTER 2024-08-04 13:52 | Emergency (ER) | payer OTHER, SELFPAY ==
--- NOTE | ~2024-08-04 | XR_ITS ---
EXAMINATION: XR CHEST CLINICAL INFORMATION: Chest pain. Pleurisy. COMPARISON: Chest x-ray October 28, 2023 TECHNIQUE: Frontal view of the chest was obtained. 3:17 PM FINDINGS: No significant abnormality is noted involving the heart, lungs, mediastinum, bony thorax or soft tissues. XR/XR chest 1V IMPRESSION: Unremarkable examination. Electronically signed by: Иван Guillory MD 08/04/2024 04:20 PM EDT
--- NOTE | 2024-08-04 14:01 | ECG_ITS ---
Test Reason : CP Blood Pressure : / mmHG Vent. Rate : 050 BPM Atrial Rate : 050 BPM P-R Int : 128 ms QRS Dur : 088 ms QT Int : 412 ms P-R-T Axes : 057 025 005 degrees QTc Int : 375 ms Sinus bradycardia Otherwise normal ECG When compared with ECG of 28-OCT-2023 13:06, No significant change was found Referred By: Generic ED Physician Electronically Signed By:ALEA MERCADO
[2024-08-04 14:47] VITALS: BP 120/71; PULSE 50; RESP 16; TEMP 36.6; O2SAT 99; BMI 27.6
--- NOTE | 2024-08-04 14:56 | ED_ITS ---
HPI - General Adult General Chief complaint: Chest Pain Stated complaint: Chest pain Time Seen by Provider: 08/04/24 19:34 Source: patient Mode of arrival: ambulatory Limitations: no limitations History of Present Illness ED Provider: jyotsna DURBIN narrative: Patient complaining of left chest pain sharp in character for last few days lasting only for few sec patient feels anxious as he joined in the new job Related Data Previous Rx's ?Medication ?Instructions ?Recorded diazepam 5 mg tablet (Valium) 5 mg PO TID PRN muscle spasm #14 03/08/21 tabs cyclobenzaprine 10 mg tablet 10 mg PO TID PRN muscle spasm #14 07/01/23 tabs naproxen 500 mg tablet 500 mg PO BID PRN pain #14 tabs 07/01/23 lorazepam 1 mg tablet (Ativan) 1 mg PO BEDTIME PRN anxiety/sleep 08/04/24 #10 tabs Allergies Allergy/AdvReac Type Severity Reaction Status Date / Time morphine [MORPHINE] Allergy Severe ANAPHYLAXIS Verified 08/04/24 14:47 morphine Allergy Unknown anaphylaxis Uncoded 08/04/24 14:47 Review of Systems 2 Review of Systems: Yes all other systems are reviewed and are negative [facility] Past Medical History Medical History No known health problems Surgical History History of appendectomy Social History Social History Alcohol intake: current Alcohol intake frequency: a few times a week Alcohol type: beer Substance Use Type: Marijuana Advance Directives: No Advance Directives Information Provided: No Do you have a plan to hurt others: No Plan Physical Exam ED Vital Signs: Vital Signs - 24 hr 08/04/24 14:47 08/04/24 19:36 08/04/24 20:20 Temperature 97.8 F 98.2 F 98.2 F Pulse Rate 50 44 L 53 Respiratory Rate 16 15 16 Blood Pressure 120/71 128/76 120/71 Pulse Oximetry 99 99 98 Oxygen Delivery Method Room Air Room Air Room Air BMI result Body Mass Index 27.6 Appearance: Alert. Oriented X3. No acute distress. Anxious Eyes: PERRLA, No Nystagmus ENT: Pharynx normal. Oral Mucosa moist Neck: Normal inspection. Neck supple. CVS: Normal heart rate and rhythm. Pulses normal. Respiratory: No respiratory distress. Equal air entry bilateral, no wheezing/rales/rhonchi Abdomen: Soft and nontender. Bowel sounds are present, no mass palpable, no CVA tenderness Skin: Skin warm and dry. Normal skin color. Normal skin turgor. Extremities: No lower extremity edema. No calf tenderness Neuro: Oriented X 3. No motor deficit. Course Course Course Narrative: RME: Done by ROMI Ramos. 23-year-old male presents to ED for chest pain, coughing up pink sputum, pleurisy, and tingling and extremities. Patient states it has been going on for 1 week. Patient denies any fever, chills, or body aches. Patient does admit to anxiety. Patient is not compliant with his Prozac for anxiety. Due to patient stating pleurisy and coughing up pink sputum will do a least a D-dimer and troponin. Medical Decision Making Differential Diagnosis Differential Diagnoses: The differential diagnosis associated with the presentation includes Anxiety/costochondritis/ACS Lab Data MDM Lab Attestation statement: I reviewed the patient's lab results. 08/04/24 15:48 08/04/24 15:48 Labs: Lab Results 08/04/24 Range/Units 15:48 WBC 9.4 (4.8-10.8) X10*3/uL RBC 5.32 (4.60-5.80) X10*6/uL Hgb 14.7 (14.0-18.0) g/dl Hct 45.2 (42.0-52.0) % MCV 85.0 (80.0-98.0) fL MCH 27.6 (27.0-33.0) pg MCHC 32.5 (31.0-36.0) g/dl RDW 14.2 (11.0-16.0) % Plt Count 290 (160-400) X10*3/uL MPV 9.9 (9.4-12.4) fL Immature Gran % (Auto) 0.2 (0.0-0.4) % Neut % (Auto) 60.8 (45-73) % Lymph % (Auto) 25.9 (20-40) % Wetzel % (Auto) 9.4 (2-11) % Eos % (Auto) 3.1 (0-4) % Baso % (Auto) 0.6 (0-2) % Lymph # (Auto) 2.4 (1.2-4.9) X10*3/uL Wetzel # (Auto) 0.9 (0.1-1.2) X10*3/uL Eos # (Auto) 0.3 (0.0-0.4) X10*3/uL Baso # (Auto) 0.1 (0.0-0.2) X10*3/uL Abs Immat Gran (auto) 0.02 (0.00-0.03) X10*3/uL Absolute Neuts (auto) 5.7 (2.0-8.3) x10*3/uL Absolute Nucleated RBC 0.000 (0.0-0.012) X10*3/uL Nucleated RBC % (auto) 0.0 (0.0-0.2) /100WBC PT 10.9 (10.9-12.4) SEC INR 0.9 (0.9-1.1) APTT 40.4 H (26.0-36.8) SEC D-Dimer High Sensitivty 217 NG/ML Sodium 140 (135-145) mmol/L Potassium 4.4 (3.3-5.1) mmol/L Chloride 106 (96-108) mmol/L Carbon Dioxide 27 (22-29) mmol/L Anion Gap 11 L (12-20) BUN 16 (9-16) mg/dL Creatinine 1.11 (0.5-1.4) mg/dL Estim Creat Clear Calc 104.0 Estimated GFR > 60 Random Glucose 84 (60-115) mg/dL Calcium 9.8 (8.4-10.2) mg/dL Total Bilirubin 0.3 (0.0-1.0) mg/dL AST 18 (5-37) U/L ALT 21 (0-40) U/L Alkaline Phosphatase 96 (39-117) U/L Troponin I High Sens < 2.7 (<3.5-35.0) ng/L B-Natriuretic Peptide < 10 (<100) pg/mL Total Protein 8.4 H (6.5-8.0) g/dL Albumin 4.5 (3.5-5.0) g/dL Influenza Type A (PCR) NEGATIVE (Negative) Influenza Type B (PCR) NEGATIVE (Negative) RSV RNA Qual (PCR) NEGATIVE (Negative) SARS-CoV-2 RNA (RT-PCR) NEGATIVE (Negative) Independent Interpretation I performed an independent interpretation of an: EKG Interpretation: Sinus bradycardia heart rate 50 beats per minute normal interval normal axis no acute ST T wave changes no acute ischemia Discharge Plan Discharge Clinical Impression: Atypical chest pain, Anxiety Patient Disposition: Home, Self-Care Instructions: Noncardiac Chest Pain (ED), Anxiety (ED) Additional Instructions: your chest pain likely from anxiety tale ativan at bed time as needed for sleep or Prescriptions: New lorazepam [Ativan] 1 mg tablet 1 mg PO BEDTIME PRN (Reason: anxiety/sleep) Qty: 10 0RF No Action diazepam [Valium] 5 mg tablet 5 mg PO TID PRN (Reason: muscle spasm) Qty: 14 0RF naproxen 500 mg tablet 500 mg PO BID PRN (Reason: pain) Qty: 14 0RF cyclobenzaprine 10 mg tablet 10 mg PO TID PRN (Reason: muscle spasm) Qty: 14 0RF Stand Alone Forms: Work/School Release Interventions: ED Discharge Assessment Last Done: 08/04/24 20:20 Discharge Date/Time: 08/04/24 20:20 Print Language: Tamazight
[2024-08-04 15:52] LABS: MANUAL DIFF FLAG NO
[2024-08-04 15:57] LABS: Basophils Absolute Auto 0.1 X10*3/uL (0.0-0.2); Basophils Percent Auto 0.6 % (0-2); Eosinophils Absolute Auto 0.3 X10*3/uL (0.0-0.4); Eosinophils Percent Auto 3.1 % (0-4); Hematocrit 45.2 % (42.0-52.0); Hemoglobin 14.7 g/dl (14.0-18.0); Imm Gran Abs Auto 0.02 X10*3/uL (0.00-0.03); Imm Gran Pct Auto 0.2 % (0.0-0.4); Lymphocytes Absolute Auto 2.4 X10*3/uL (1.2-4.9); Lymphocytes Percent Auto 25.9 % (20-40); Mean Corpuscular HGB Conc 32.5 g/dl (31.0-36.0); Mean Corpuscular Hemoglobin 27.6 pg (27.0-33.0); Mean Platelet Volume 9.9 fL (9.4-12.4); Monocytes Absolute Auto 0.9 X10*3/uL (0.1-1.2); Monocytes Percent Auto 9.4 % (2-11); Neutrophils Absolute Auto 5.7 x10*3/uL (2.0-8.3); Neutrophils Percent Auto 60.8 % (45-73); Platelet Count 290 X10*3/uL (160-400); Red Blood Count 5.32 X10*6/uL (4.60-5.80); Red Cell Distribution Width 14.2 % (11.0-16.0); White Blood Count 9.4 X10*3/uL (4.8-10.8)
[2024-08-04 16:02] LABS: INTERNATIONAL NORM RATIO 0.9 (0.9-1.1); Prothrombin Time 10.9 SEC (10.9-12.4)
[2024-08-04 16:04] LABS: D Dimer High Sensitivity 217 NG/ML; Partial Thromboplastin Time 40.4 SEC (26.0-36.8)
[2024-08-04 16:10] LABS: Alanine Aminotransferase 21 U/L (0-40); Albumin Level 4.5 g/dL (3.5-5.0); Alkaline Phosphatase 96 U/L (39-117); Anion Gap 11 (12-20); Aspartate Amino Transferase 18 U/L (5-37); Bilirubin Total 0.3 mg/dL (0.0-1.0); Blood Urea Nitrogen 16 mg/dL (9-16); Calcium 9.8 mg/dL (8.4-10.2); Carbon Dioxide 27 mmol/L (22-29); Chloride 106 mmol/L (96-108); Estimated Glomerular Filt Rate > 60; Glucose Random 84 mg/dL (60-115); Potassium 4.4 mmol/L (3.3-5.1); Sodium 140 mmol/L (135-145); Total Protein 8.4 g/dL (6.5-8.0)
[2024-08-04 16:16] LABS: B Type Natriuretic Peptide < 10 pg/mL (<100)
[2024-08-04 16:19] LABS: Troponin-I High Sensitivity < 2.7 ng/L (<3.5-35.0)
[2024-08-04 16:49] LABS: Influenza A PCR NEGATIVE (Negative); Influenza B PCR NEGATIVE (Negative); Resp Syncy Virus RNA Qual PCR NEGATIVE (Negative); SARS COV2 PCR INHOUSE NEGATIVE (Negative)
[2024-08-04 19:36] VITALS: BP 128/76; PULSE 44; RESP 15; TEMP 36.8; O2SAT 99
[2024-08-04 20:20] VITALS: BP 120/71; PULSE 53; RESP 16; TEMP 36.8; O2SAT 98
== END 2024-08-04 20:20 | disposition home or self-care (01) ==
PROVIDERS: Physician Assistant; Emergency Provider Internal Medicine
DX: R07.89 Other chest pain (principal); F41.9 Anxiety disorder, unspecified; R06.02 Shortness of breath; Z03.818 Encounter for observation for suspected exposure to other biological agents ruled out; Z79.899 Other long term (current) drug therapy
CPT/HCPCS: 0241U; 36415; 71045; 80053; 83880; 84484; 85025; 85379; 85610; 85730; 93005; 99283; 99284

== ENCOUNTER 2025-01-03 13:47 | Outpatient (AMB) | payer OTHER, SELFPAY ==
--- NOTE | 2025-01-03 13:54 | A.OFFVIS_ITS ---
Vital Signs 01/03/25 13:56 Height 5 ft 7 in Weight 181 lb BMI 28.3 BP 120/70 Blood Pressure Location Lt brachial Position Sitting Pulse 62 Pulse Source Pulse Oximeter Pulse Oximetry (%) 96 Oxygen Delivery Method Room Air Intake Visit Reasons: ENP-Headaches Intake Note: Patient presents [employer] migraine. Patient went to [place] [facility]. CT 12/04/23 on file under scanned referral Sharepoint Manager Required: No Accompanied by: Self / Same As Patient Allergies morphine [MORPHINE] Allergy (Severe, Verified 01/03/25 13:56) ANAPHYLAXIS morphine Allergy (Unknown, Uncoded 08/04/24 14:47) anaphylaxis Medication List - Last Reconciled 01/03/25 by Rae Abernathy, JUNE cyclobenzaprine 10 mg PO TID PRN diazepam (Valium) 5 mg PO TID PRN lorazepam (Ativan) 1 mg PO BEDTIME PRN naproxen 500 mg PO BID PRN HPI Comments Details: Right-handed 24-yr-old male pleasant effect as below pertinent denials presents for new pt evaluation of headache disorder. The patient is a 24-year-old male presenting with episodic migraine with aura. The headaches began at approximately 20 years of age without precipitating cause . The headaches are characterized by intense, right-sided, episodic pain with associated symptoms including nausea and sensory sensitivities. Although sporadic, they significantly impact the patient's daily life, necessitating bed rest in dark environments for relief. 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 The headache attacks provoke anxiety and fear, which prompted him to seek care in the ER. He has also had ER evaluations for chest discomfort, at times is associated with headache, but not always- workup for this has been unremarkable. Previous ER visits have yielded temporary relief with naproxen and a nasal spray, but these interventions have not significantly altered the course of the migraines. He has not previously seen neurology. Review of Systems - Neurological: Reports light and sound sensitivity. Endorses motion sickness as a child. Denies double vision. - Respiratory: Childhood history of asthma, resolved. - Gastrointestinal: Reports acid reflux and occasional constipation. - Psychological: Reports anxiety and ADHD. Pertinent denials include denies history of concussion, dizziness, double vision, neck injuries, HTN, HLD, clotting/bleeding disorders, endocrine disorders, history of seizure, thyroid or diabetes, kidney disease or kidney stones. Headache Review The patient is a 24-year-old male presenting with episodic migraine with aura. - Onset: Began at age 20. - Frequency: 3-4 times monthly. - Duration: 0.5 to several hours, never persistent throughout the day. - Location: Right-sided frontal through occipital region.. - Quality: Pressure and squeezing sensation. - Severity: Rated 5-6/10. - Aura: numbness and tingling in right arm and at times right leg. - Associated symptoms: Nausea, light and sound sensitivity, infrequent - Aggravating factors: Standing up. - Alleviating factors: Laying down in a dark room. - Treatment history: Limited effectiveness with naproxen, unspecified nasal spray, and Fioricet. Zofran helped with nausea but not headache. Headache Lifestyle Factors - Caffeine: Little to none. - Exercise: Minimal, not enough as per patient assessment. - Sleep: as below - Is hopeful to eventually start a family Sleep - Disorganized and irregular patterns. - Typically sleeps in chunks, 8:00 AM to 12:00 PM and 8:00 PM to 4:00 AM. - Reports 4 to 6 hours of total sleep duration. - Inconsistent sleep onset and maintenance, with frequent interruptions. - Has friends who live in [place], whom he plays video games with, which is a predominant reason for his altered sleep schedule. He plans to move to [place] by the end of this year, which he feels will help with this. ON LICENSE OF [facility] Medical History No known health problems Surgical History History of appendectomy Social History Alcohol intake: current Alcohol intake frequency: a few times a week Alcohol type: beer Substance Use Type: Marijuana Physical Exam Vital Signs: Last Vital Signs Pulse 62 01/03/25 13:56 BP 120/70 01/03/25 13:56 Pulse Ox 96 01/03/25 13:56 Oxygen Delivery Method Room Air 01/03/25 13:56 BMI result Body Mass Index 28.3 Const General: no acute distress Orientation/consciousness: patient oriented x3 HEENT Other: Mallampati stage Resp Effort & Inspection: normal respiratory effort and able to speak in complete sentences Cardio Rate: regular rate Rhythm: regular rhythm Neuro Other: No palpable scalp tenderness. Musculoskeletal- mild posterior cervical tightness noted, not significant. With negative bilateral Spurling. General: patient oriented x3 Cranial nerves: Yes CN's II-XII intact bilaterally Cognition (Neuro): normal cognition Gait exam (Neuro): Normal gait present Motor exam (neuro): 5/5 motor strength present throughout Deep tendon reflexes (DTR's): Right triceps reflex intensity grade: 2+, Left triceps reflex intensity grade: 2+, Rt Biceps (C5, C6): 2+, Left biceps reflex intensity grade: 2+, Right brachioradialis reflex intensity grade: 2+, Left brachioradialis reflex intensity grade: 2+, Right patellar reflex intensity grade: 2+ and Left patellar reflex intensity grade: 2+ Coordination: [id number] test normal, tandem gait normal and Romberg test negative Pupils: Normal pupillary reactivity/response: bilateral Psych Appearance: grossly normal Mental Status: mental status grossly normal Speech and movement: Clear speech present Affect: normal affect Attitude: cooperative Thought process: Normal thought process present Assessment & Plan Assessment & Plan (1) Right-sided headache: Comment: Likely episodic migraine with sensory aura Code(s): R51.9 - Headache, unspecified Category: Medical (2) Paresthesia of right arm and leg: Code(s): R20.2 - Paresthesia of skin Category: Medical Plan We have advised you to have the following exams: Brain MRI with and without contrast to assess for secondary etiologies of headache owing to right-sided paresthesia during headache attacks. Patient endorses claustrophobia, thus we will order alprazolam p.r.n. prior to MRI. Future considerations: Sleep study. 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 Thus, returned to workle without restriction tter written, signed, and given to patient in hand. For overall headache management: It is important to practice good self-care, including but not limited to eating a healthy diet, drinking enough fluids (typically 64 oz per day), maintaining a good sleep routine, and engaging in regular physical activity (typically 30-45 minutes of moderate physical activity 5 days per week). Patient advised to establish care with a psychotherapist. To help us better understand your headache: * Track headaches, especially after treatment plan changes. Migraine BuddiVimbly is one of many headache tracking apps you may use. To reduce light sensitivity: * Minimize blue light exposure by using blue light blocking devices, such as: Blue light filtering glasses, FL-41 orion tinted blue light filtering glasses, Blue light blocking screen protectors, Changing the blue light levels on your electronic devices. * Increasing green light exposure by using devices that increase green light exposure, such as wearing green lensed glasses or green light therapy lamps (such as the Allay Lamp). * Avoid wearing traditional sunglasses inside. To reduce noise sensitivity: * Minimize exposure to loud sounds and environments by using noise reduction/cancelling devices, such as foam ear plugs, noise reducing ear plugs (such as Loop Ear Plugs), or noise cancelling headphones. For acute headache treatment: It is important to take as needed acute medications at the first sign of headache, however you want to avoid taking most as needed headache too often as this can lead to medication overuse/adaptation headaches. Trial Sumatriptan 100mg tab, 1/2 - 1 tab (50-100mg) at onset of headache, may repeat in 2 hours. Max of 2 tabs (200mg) per 24 hours. May take sumatriptan with OTC Tylenol 650-1,000mg every 4-6 hours, Ibuprofen (liquid gels) 600mg every 6 hours, or Naproxen (liquid gels) 440mg q 12 hrs prn. We will refill ondansetron 4 mg p.o. every 4 hours p.r.n. nausea. Potential adverse effects of triptans, include but are not limited to nausea, fatigue, chest tightness/tingling (usually passes within a few minutes), medication overuse headaches. Previous acute migraine medication trials: Fioricet ineffective, naproxen- ineffective. A nasal spray given in the ER- limited effect Acute migraine medication contraindications: None at this time For headache prevention medication: Preventative medications should be taken routinely as prescribed for best effect, it may take several weeks to see full effect. Start Riboflavin 400mg daily in the morning. This likely will cause urine to become bright yellow, which is benign. Start Magnesium 400mg daily at bedtime. Potential side effects including abdominal discomfort, loose stools. Previous migraine prevention medication trials: None Migraine prevention medication contraindications: None Patient seen in collaboration with Dr. Jarrett. Patient was informed and verbally consented to the use of an ambient scribe for clinic note documentation during this visit. Will follow-up upon review of above and patient to follow-up in clinic in 6 months or sooner prn. Orders: Orders MR head/brain wo/w con Today R20.2 - Paresthesia of skin, R51.9 - Headache, unspecified Medications: New sumatriptan succinate (0.5 - 1 x 100 mg) 50 - 100 mg orally at onset of headache, may repeat in 2 hrs PRN; max 2 tabs per day or 4 tabs/week (may take with Aleve 440mg) 30 days 12 tabs 6RF migraine headache ondansetron HCl 4 mg PO Q4H 30 days PRN 20 tabs 3RF nausea and vomiting magnesium oxide may hold for loose stools 400 mg PO BEDTIME 30 days 30 tabs 6RF riboflavin (vitamin B2) 400 mg PO DAILY 30 days 30 tabs 6RF alprazolam 0.25 mg orally 1 tab 30 minutes prior to MRI, may repeat x's 1; 1 day 2 tabs 0RF Discontinued diazepam (Valium) Discontinued Reason: Patient no longer taking 5 mg PO TID PRN 14 tabs 0RF muscle spasm lorazepam (Ativan) Discontinued Reason: Patient Completed Course 1 mg PO BEDTIME PRN 10 tabs 0RF anxiety/sleep cyclobenzaprine Discontinued Reason: No Longer Medically Relevant 10 mg PO TID PRN 14 tabs 0RF muscle spasm Coding Level of Care Code New Pt Level 4 (19871) Diagnoses Right-sided headache R51.9 Paresthesia of right arm and leg R20.2
[2025-01-03 13:56] VITALS: BP 120/70; PULSE 62; O2SAT 96; BMI 28.3
--- OUTSIDE RECORDS SUMMARY | 2025-01-03 17:08 | XMS_ITS | Clinical Summary ---
Author Organization [facility] [address] [facility] Address [address] [place] [address] Phone Care Team Providers Care Branch Lending Manager Name Role Phone Caridad Dasilva MD Primary Care Pr ovider Allergies Active Allergy Reactions Criticality Noted Date Comments Morphine 09/03/2023 Medications FLUoxetine (PROzac) 20 mg capsule Take 1 capsule (20 mg total) by mouth 1 (one) time each day. 30 each 2 10/20/2024 Active hydrOXYzine HCL (ATARAX) 25 mg tablet Take 1 tablet (25 mg total) by mouth 2 (two) times a day if needed for anxiety. 60 each 1 10/20/2024 Active Active Problems Problem Noted Date Diagnosed Date Sinus bradycardia 10/27/2024 Assessment & Plan (10/28/2024 12:04 PM EST): Result of a sinus bradycardia, his AV conduction and QRS duration are normal. His cardia exam is otherwise unremarkable and he had a proper response to exercise. I will check TSH, sed rate. Orders: Ambulatory referral to Cardiology ECG 12 lead TSH; Future B-type natriuretic peptide; Future High sensitivity CRP; Future Lipid panel with reflex to direct LDL; Future Sedimentation rate, automated; Future Chest pain 10/27/2024 Assessment & Plan (10/28/2024 12:03 PM EST): He had no chest pain or ischemia EKG change with adequate exercise on the treadmill. He also has a low probability for ischemia heart disease at this age. We need to check lipid profile. Generalized anxiety disorder 09/03/2023 Mild depression 09/03/2023 Overweight (BMI 25.0-29.9) 09/03/2023 Panic attacks 09/03/2023 Rhinitis 09/03/2023 Encounters Date Type Department Care Team Description 10/28/2024 10:20 AM EST Office Visit [facility] - [address] [place] [address] Carlos Zacarias MD Chest pain, unspecified type (Primary Dx); Sinus bradycardia; Intermittent chest pain 10/20/2024 3:00 PM EST Office Visit Adult [address] [phone] Trihsa Hernandez PA Generalized anxiety disorder (Primary Dx); Panic attacks; Depression, unspecified depression type 10/20/2024 7:30 AM EST Ancillary Procedure [facility] [address] [place] [phone] Chest pain, unspecified from Last 3 Months Immunizations Name Administration Dates Next Due DTaP (Infanrix) 6wks to less than 7yo 03/09/2001 ,02/08/2000,1999 [id number]-[id number]-VJG (Pentacel) 2mo to less than 5yo 1999 DTaP-IPV (Kinrix; Quadracel) 4yo to less than 7yo 08/09/2003 HPV, Quadrivalent 09/27/2013,05/31/2013,03/23/20 13 Hepatitis A Pediatric (Havri x; Vaqta) 12mo to less than 19yo 03/23/2013,10/24/2011 Hepatitis B Pediatric (Enger ix B; Recombivax HB) to less than 20 yo 08/26/2002,05/09/2000,02/08/2000 HiB PRP-OMP conjugate (Pedva xhib) 6wks and older 02/08/2000,1999 IPV Inactivated polio (Ipol) 6wks and older 1999,1999 Influenza Quadravalent, MDCK , 0.5ml, preservative free (Flucelvax) 6mo and older 09/03/2023 Influenza trivalent, 0.5mL, preservative free (Fluarix; FluLaval; Fluzone) ages 6mo and older (Afluria) 3 years and older 11/18/2017,07/05/2015 MMR, measles mumps and rubel la Live (Priorix; M-M-R II) 12mo and older 08/09/2003,08/09/2000 Meningococcal B, Recombinant (Trumenba) 16yo to less than 24yo 11/18/2017 Meningococcal Conjugate (Men veo) MenACWY 11yo to less than 19 yo 11/18/2017,10/24/2011 Tdap Tetanus diptheria acell ular pertussis (Boostrix; Adacel) 7yo and older 11/18/2017,10/24/2011 Varicella live (Varivax) 12mo and older 04/13/20,08/26/2000 Surgical History Surgery Date Site/Laterality Comments APPENDECTOMY 2013 PROCEDURE: HISTORICAL APPENDECTOMY Family History Medical History Relation Name Comments Hypertension Mother Breast cancer Neg Hx Colon cancer Neg Hx Diabetes Neg Hx Prostate cancer Neg Hx Relation Name Status Comments Mother Social History Tobacco Use Types Packs/Day Years Used Date Smoking Tobacco: Former Cigarettes Q uit: 11/09/2014 Smokeless Tobacco: Former Tobacco Cessation:Counseling Given: Not Answered Alcohol Use Standard Drinks/Week Comments Yes 0 (1 standard drink = 0.6 oz pur e alcohol) Housing Instability Answer Date Recorde d Are you worried that in the next 2 months you may not have stable housing? No 10/20/2024 Food Access & Nutrition Answer Date Rec orded Do you have access to a vari ety of food including fruits and vegetables? Yes 10/20/2024 Access to Healthcare Answer Date Record ed Within the last 3 months, megan casas many times did you visit the emergency department for your medical care? 3 10/20/2024 Health Literacy Answer Date Recorded How often do you need to hav e someone help you when you read instructions, pamphlets, or other written material from your doctor or pharmacy? Rarely 10/20/2024 Caregiver: How often do you need to have someone help you when you read instructions, pamphlets, or other written material from your doctor or pharmacy? Not on file 10/20/2024 Financial Risk Answer Date Recorded How hard is it for you to pa y for the very basics like food, housing, medical care, and air conditioning / heating? Very hard 10/20/2024 Transportation Answer Date Recorded Has the lack of transportati on kept you from meetings, work, or from getting things needed for daily living? Yes Has the lack of transportati on kept you from medical appointments or from getting medications? Yes 10/20/2024 Social Isolation Answer Date Recorded How often do you feel lonely or isolated from th ose around you? Often 10/20/2024 Food Risk Answer Date Recorded Within the past 12 months we worried whether our food would run out before we got money to buy more. Sometimes true 024 Within the past 12 months th e food we bought just didn't last and we didn't have money to get more. Sometimes true 10/20/2024 Dependent Care Answer Date Recorded Do you need help finding or paying for care for your loved ones. For example, child development instructor or elderly care for an older adult? No 10/20/2024 Education Answer Date Recorded Do you think completing more education or training, like finishing a GED, going to college, or learning a trade, would be helpful for you? Yes 10/20/2024 Employment and Income Answer Date Recor ded During the last four weeks, have you been actively looking for work? Yes 10/20/2024 Living Situation Answer Date Recorded What is your living situation? 1 12/21/2023 Sex and Gender Information Value Date Recorded Sex Assigned at Not on file Legal Sex Male 11:34 PM EST Gender Identity Not on file Sexual Orientation Not on file Obstetrics History Last Filed Vital Signs Vital Sign Reading Time Taken Comments Blood Pressure 100/64 10/28/2024 10:11 AM EST Pulse 46 10/28/2024 10:11 AM EST Temperature 36.2 ??C (97.1 ??F) 10/20/2024 3:12 PM ES T Respiratory Rate 14 10/20/2024 3:12 PM EST Oxygen Saturation 97% 10/28/2024 10:11 AM EST Inhaled Oxygen Concentration - - Weight 84.8 kg (187 lb) 10/28/2024 10:11 AM EST Height 170.2 cm (5' 7 ) 10/28/2024 10:11 AM EST Body Mass Index 29.29 10/28/2024 10:11 AM EST Plan of Treatment Health Maintenance Due Date Last Done Comments Meningococcal B Vacine (2 of 2 - Trumenba SCDM 2-dose series) 05/18/2018 11/18/2017 HIV Screening 10/12/2022 Hepatitis C Screening 10/12/2022 COVID-19 Vaccine ( season) 2024 02/04/2021 Influenza Vaccine (#1) 2024 , 11/18/2017, 07/05/2015 Depression Screening 10/20/2025 10/20/2024 Social Influencers of Health Screening 10/20/2025 10/20/2024 DTaP,Tdap,and Td Vaccines (8 - Td or Tdap) 11/18/2027 11/18/2017, 10/24/2011, 08/30/2003, Additional history exists Cholesterol Screening (Lipid Panel) 10/28/2029 10/28/2024 HIB Vaccines Completed 03/24/2001, 02/09, 02/08/2000, Additional history exists Pneumococcal Vaccine: Pediatrics (0 to 5 Years) and At-Risk Patients (6 to 64 Years) Aged Out 03/24/2001 No longer eligible based on patient's age to complete this topic Hepatitis B Vaccines Completed 08/26/2002, 06/01/2000, 05/09/2000, Additional history exists IPV Vaccines Completed 08/30/2003, 11/2002, 03/24/2001, Additional history exists MMR Vaccines Completed 08/30/2003, 11/2002, 08/21/2000, Additional history exists Varicella Vaccines Completed 04/13/2012, 0 03/22/2008, 08/26/2000 Hepatitis A Vaccines Completed 03/23/2013, 10/24/20 11 HPV Vaccines Completed 09/27/2013, 05/10, 03/23/2013 Meningococcal ACWY Vaccine Completed 11/18/2017, RSV Immunization Patients Under 20 months Aged Out No longer eligible based on patient's age to complete this topic Procedures Procedure Name Priority Date/Time Associated Diagnosis Comments SEDIMENTATION RATE Routine 10/28/2024 11 :07 AM EST Sinus bradycardia LIPID PANEL WITH REFLEX TO DIRECT LDL Routine 10/28/2024 11:07 AM EST Sinus bradycardia C REACTIVE PROTEIN, HIGH SENSITIVITY Routine 10/28/2024 11:07 AM EST Sinus bradycardia B-TYPE NATRIURETIC PEPTIDE Routine 10/28/2024 11:07 AM EST Sinus bradycardia THYROID STIMULATING HORMONE Routine 10/28/2024 11:07 AM EST Sinus bradycardia ECG 12-LEAD Routine 10/28/2024 10:17 AM EST Sinus bradycardia Intermittent chest pain STRESS TEST ONLY EXERCISE Routine 10/20/2024 8:40 AM EST Chest pain, unspecified from Last 3 Months Results * (ABNORMAL) Lipid panel with reflex to direct LDL (10/28/2024 11:07 AM EST) Cholesterol 194 0 - 200 mg/dL LAB CHEMISTRY METHOD 10/28/2024 4:44 PM [facility] Triglycerides 102 0 - 150 mg/dL LAB CHEMISTRY METHOD 10/28/2024 4:44 PM [facility] HDL 47 >=40 mg/dL LAB CHEMISTRY METHOD 10/28/2024 4:44 PM [facility] LDL Calculated 127(H) 0 - 100 mg/dL LAB CHEMISTRY METHOD 10/28/2024 4:44 PM [facility] VLDL Cholesterol Eliot 20.4 mg/dL LAB CHEMISTRY METHOD 10/28/2024 4:44 PM [facility] Non HDL Chol. (LDL+VLDL) 147(H) <145 mg/dL LAB CHEMISTRY METHOD 10/28/2024 4:44 PM [facility] Chol/HDL Ratio 4.1 0.0 - 4.4 LAB CHEMISTRY METHOD 10/28/2024 4:44 PM EST [facility] Blood Venous blood specimen / Unknown Venipuncture / Unknown 10/28/2024 11:07 AM EST 10/28/2024 11:07 AM EST us Carlos Zacarias MD LAB BLOOD ORDERABLES Final Resul t Performing Organization Address City/[facility]/ZIP Co de Phone Number [facility] [address] [place] [address], [place] [phone] * Sedimentation rate, automated (10/28/2024 11:07 AM EST) Pathologist [facility] Sed Rate 14 0 - 15 mm/hr LAB HEMETOLOGY METHOD 10/28/2024 2:48 PM EST [facility] Blood Venous blood specimen / Unknown Venipuncture / Unknown 10/28/2024 11:07 AM EST 10/28/2024 11:07 AM EST us Carlos Zacarias MD LAB BLOOD ORDERABLES Final Resul t Performing Organization Address [facility] de Phone Number [facility] [address] [place] [address], [place] [phone] * High sensitivity CRP (10/28/2024 11:07 AM EST) CRP, High Sensitivity 2.32 mg/L LAB CHEMISTRY METHOD 10/28/2024 4:39 PM EST [facility] Comment: Cardio CRP Relative Risk Categories ?? Low ? <1.0 mg/L ?? Average ?? 1.0 - 3.0 mg/L ?? High ?>3.0 mg/L Levels >10.0 mg/L should be ignored and repeated when the patient is stable and infection or inflammation is ruled out. Blood Venous blood specimen / Unknown Venipuncture / Unknown 10/28/2024 11:07 AM EST 10/28/2024 11:07 AM EST us Carlos Zacarias MD LAB BLOOD ORDERABLES Final Resul t Performing Organization Address [facility] Co de Phone Number [facility] [address] [place] [address], [place] [phone] * TSH (10/28/2024 11:07 AM EST) Pathologist [facility] TSH 0.91 0.40 - 4.00 mcIU/mL LAB CHEMISTRY METHOD 10/28/2024 4:46 PM EST [facility] Blood Venous blood specimen / Unknown Venipuncture / Unknown 10/28/2024 11:07 AM EST 10/28/2024 11:07 AM EST us Carlos Zacarias MD LAB BLOOD ORDERABLES Final Resul t Performing Organization Address [facility] de Phone Number [facility] [address] [place] [address], [place] [phone] * B-type natriuretic peptide (10/28/2024 11:07 AM EST) [facility] BNP 30 <=100 pcg/mL LAB CHEMISTRY METHOD 10/28/2024 3:41 PM EST [facility] Blood Venous blood specimen / Unknown Venipuncture / Unknown 10/28/2024 11:07 AM EST 10/28/2024 11:07 AM EST us Carlos Zacarias MD LAB BLOOD ORDERABLES Final Resul t Performing Organization Address [facility] Co de Phone Number [facility] [address] [place] [address], [place] [phone] * ECG 12 lead (10/28/2024 10:17 AM EST) Ventricular Rate ECG 46 BPM GEMUSE Atrial Rate 46 BPM GEMUSE P-R Interval 124 ms GEMUSE QRS Duration 96 ms GEMUSE Q-T Interval 410 ms GEMUSE QTc 358 ms GEMUSE P Wave [place] 37 degrees GEMUSE R [place] 73 degrees GEMUSE T [place] 22 degrees GEMUSE ECG Interpretation Sinus bradycardia Otherwise normal ECG No previous ECGs available Confirmed by Noah ZACARIAS, CARLOS ([id number]) on 10/28/2024 11:42:26 AM GEMUSE 10/28/2024 10:1 7 AM EST 10/28/2024 11:42 AM EST Carlos Zacarias MD ECG ORDERABLES Final Result GEMUSE * Exercise stress test (10/20/2024 8:40 AM EST) Target HR 166 bpm CV STRESS ONLY Baseline HR 48 bpm CV STRES S ONLY Baseline SBP 125 mmHg CV STRE SS ONLY Baseline DBP 72 mmHg CV STRE SS ONLY O2 sat rest 96 % CV STRES S ONLY Peak HR 168 bpm CV STRESS ONLY Peak SBP 162 mmHg CV STRESS ONLY Peak DBP 70 mmHg CV STRESS ONLY Estimated workload 12.1 METS CV STRESS ONLY Rate Pressure Product 27,216.0 mmHg*bpm CV STRESS ONLY Percent HR 86 % CV STRESS ONLY Exercise/injec tion duration (min) 10 min CV STRESS ONLY Exercise/injec tion duration (sec) 43 sec CV STRESS ONLY Anatomical Region Laterality Modality Cardiac Diagnost ic Narrative 10/20/2024 1:17 PM EST ?Normal exercise EKG stress test. ?Exercise stress test was performed. Exercise capacity was average. Normal blood pressure response. Stress Findings A Иван protocol stress test was performed. Overall, the patient's exercise capacity was average. Total stress time was 10 min and 43 sec. The test was stopped because the patient experienced fatigue. Blood pressure demonstrated a normal response. Heart rate demonstrated a normal response. Patient reported right chest discomfort during peak exercise that resolved in early recovery. ECG 24 year old with atypical chest pain, no cardiac history. The ECG shows normal sinus rhythm. The baseline ECG has early repolarization. There were no arrhythmias during stress. There is no significant ST abnormalities during stress. There were no arrhythmias during recovery. Procedure Note Trisha Charles NP / Carlos Zacarias MD - 10/20/2024 ? ? Normal exercise EKG stress test. ? ? Exercise stress test was performed. Exercise capacity was average.Normal blood pressure response. us Trisha LLANOS CV STRESS PROCEDURES Final Re sult from Last 3 Months Insurance Care Teams Branch Lending Manager Relationship Specialty Start Date End Date Caridad Dasilva MD [address] [place] [address] [phone] PCP - General Internal Medicine 09/27/24
== END 2025-01-03 14:42 | disposition home or self-care (01) ==
PROVIDERS: Visit Provider Nurse Practitioner Family
DX: R51.9 Headache, unspecified (principal); R20.2 Paresthesia of skin
CPT/HCPCS: 99204

== ENCOUNTER 2025-01-13 13:09 | Outpatient (REF) | payer OTHER, SELFPAY ==
--- NOTE | ~2025-01-13 | MR_ITS ---
EXAMINATION: MR BRAIN WITHOUT AND WITH CONTRAST CLINICAL INFORMATION: Headache COMPARISON: None TECHNIQUE: Multiplanar, multisequence MRI of the brain was obtained before and after the intravenous administration of 8 mL of Gadavist. FINDINGS: There is no restricted diffusion seen to suspect any acute ischemia. There is no magnetic susceptibility artifact suspect acute or chronic hemorrhagic products or calcification. Radial white matter differences maintained normal with no abnormal T2 FLAIR signal seen. The lateral ventricles are symmetrical in size and configuration without enlargement. Normal flow-void signal seen in major cerebral vasculature. As contrast no abnormal intra-axial or extra-axial enhancement seen to suspect any lesion. There is no extra-axial collection. Scalp soft tissues are normal. No abnormality seen in posterior fossa. The paranasal sinuses and mastoid air cells are well-aerated. MR/MR head/brain wo/w con IMPRESSION: Unremarkable MRI brain without and with contrast. Electronically signed by: Raghav Heath MD 01/16/2025 02:30 PM EDT
[2025-01-13] MEDS: gadobutroL 10 ML VIAL IVPUSH (13:52)
--- OUTSIDE RECORDS SUMMARY | 2025-01-13 14:48 | XMS_ITS | Clinical Summary ---
Author Organization [facility] [address] [facility] Address [address] [place], [place] Phone Care Team Providers Care Asbestos Textile Supervisor Name Role Phone Caridad Dasilva MD Primary [...] Description 10/28/2024 10:20 AM EST Office Visit [facility] - [address] [place] [address] Carlos Zacarias MD Chest pain, unspecified type (Primary Dx); Sinus bradycardia; Intermittent chest pain 10/20/2024 3:00 PM EST Office Visit Adult [address] [phone] Trisha Hernandez PA Generalized anxiety disorder (Primary Dx); Panic attacks; Depression, unspecified depression type 10/20/2024 7:30 AM EST Ancillary Procedure [facility] - [address] [place] [phone] Chest pain, unspecified from Last 3 Months Immunizations Name Administration Dates Next Due DTaP (Infanrix) 6wks to less than 7yo 03/09/2001 ,02/08/2000,1999 [id number] (Pentacel) 2mo to less than 5yo 1999 [...] for your loved ones. For example, child protective investigator or elderly care for an older adult? [...] mg/dL LAB CHEMISTRY METHOD 10/28/2024 4:44 PM [facility] Triglycerides 102 0 - 150 mg/dL LAB CHEMISTRY METHOD 10/28/2024 4:44 PM [facility] HDL 47 >=40 mg/dL LAB CHEMISTRY METHOD 10/28/2024 4:44 PM [facility] LDL Calculated 127(H) 0 - 100 mg/dL LAB CHEMISTRY METHOD 10/28/2024 4:44 PM [facility] VLDL Cholesterol Eliot 20.4 mg/dL LAB CHEMISTRY METHOD 10/28/2024 4:44 PM [facility] Non HDL Chol. (LDL+VLDL) 147(H) <145 mg/dL LAB CHEMISTRY METHOD 10/28/2024 4:44 PM [facility] Chol/HDL Ratio 4.1 0.0 - 4.4 LAB CHEMISTRY METHOD 10/28/2024 4:44 PM EST [facility] Blood Venous blood specimen / Unknown Venipuncture / Unknown 10/28/2024 11:07 AM EST 10/28/2024 11:07 AM EST us Carlos Zacarias MD LAB BLOOD ORDERABLES Final Resul t Performing Organization Address City/[facility]/ZIP Co de Phone Number [facility] [address] [place] [address], [place] [phone] * Sedimentation rate, automated (10/28/2024 11:07 AM EST) Pathologist [facility] Sed Rate 14 0 - 15 mm/hr LAB HEMETOLOGY METHOD 10/28/2024 2:48 PM EST [facility] Blood Venous blood specimen / Unknown Venipuncture / Unknown 10/28/2024 11:07 AM EST 10/28/2024 11:07 AM EST us Carlos Zacarias MD LAB BLOOD ORDERABLES Final Resul t Performing Organization Address [facility] de Phone Number [facility] [address] [place] [address], [place] [phone] * High sensitivity CRP (10/28/2024 11:07 AM EST) CRP, High Sensitivity 2.32 mg/L LAB CHEMISTRY METHOD 10/28/2024 4:39 PM EST [facility] Comment: Cardio CRP Relative [...] ORDERABLES Final Resul t Performing Organization Address [facility] Co de Phone Number [facility] [address] [place] [address], [place] [phone] * TSH (10/28/2024 11:07 AM EST) Pathologist [facility] TSH 0.91 0.40 - 4.00 mcIU/mL LAB CHEMISTRY METHOD 10/28/2024 4:46 PM EST [facility] Blood Venous blood specimen / Unknown Venipuncture / Unknown 10/28/2024 11:07 AM EST 10/28/2024 11:07 AM EST us Carlos Zacarias MD LAB BLOOD ORDERABLES Final Resul t Performing Organization Address [facility] de Phone Number [facility] [address] [place] [address], [place] [phone] * B-type natriuretic peptide (10/28/2024 11:07 AM EST) [facility] BNP 30 <=100 pcg/mL LAB CHEMISTRY METHOD 10/28/2024 3:41 PM EST [facility] Blood Venous blood specimen / Unknown Venipuncture / Unknown 10/28/2024 11:07 AM EST 10/28/2024 11:07 AM EST us Carlos Zacarias MD LAB BLOOD ORDERABLES Final Resul t Performing Organization Address [facility] Co de Phone Number [facility] [address] [place] [address], [place] [phone] * ECG 12 lead (10/28/2024 10:17 AM EST) Ventricular Rate ECG 46 BPM GEMUSE Atrial Rate 46 BPM GEMUSE P-R Interval 124 ms GEMUSE QRS Duration 96 ms GEMUSE Q-T Interval 410 ms GEMUSE QTc 358 ms GEMUSE P Wave [place] 37 degrees GEMUSE R [place] 73 degrees GEMUSE T [place] 22 degrees GEMUSE ECG Interpretation Sinus bradycardia [...] from Last 3 Months Insurance Care Teams Asbestos Textile Supervisor Relationship Specialty Start Date End Date Caridad Dasilva MD [address] [place] [address] [phone] PCP - General Internal Medicine 09/27/24
== END 2025-01-13 13:10 | disposition home or self-care (01) ==
LOC: HO.MRI 13:09
PROVIDERS: PCP Family Medicine; Visit Provider Nurse Practitioner Family
DX: R51.9 Headache, unspecified (principal); R20.2 Paresthesia of skin
CPT/HCPCS: 70553; A9585

== ENCOUNTER → 2025-01-13 13:19 | Outpatient (BNV) | payer OTHER, SELFPAY | PROVIDERS: PCP Family Medicine; Visit Provider Radiology Diagnostic Radiology | DX: R51.9 Headache, unspecified (principal) | CPT/HCPCS: 70553 ==

== ENCOUNTER 2025-02-23 18:53 | Emergency (ER) | payer OTHER, SELFPAY ==
--- NOTE | ~2025-02-23 | CT_ITS ---
CLINICAL HISTORY: fall with head strike, LOC CT head without contrast Comparison: None Findings: No intracranial mass, midline shift, hydrocephalus, or acute hemorrhage. No acute process in sinuses or mastoids. No acute bony abnormality. Impression: No acute intracranial process This document has been electronically signed by: Nicholas Moreland MD on 02/23/2025 19:53:07
[2025-02-23 19:17] VITALS: BP 123/76; PULSE 55; RESP 16; TEMP 36.9; O2SAT 99; BMI 27.4
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
--- NOTE | 2025-02-23 19:19 | ECG_ITS ---
Test Reason : SYNCOPE Blood Pressure : */* mmHG Vent. Rate : 66 BPM Atrial Rate : 66 BPM P-R Int : 144 ms QRS Dur : 88 ms QT Int : 410 ms P-R-T Axes : 60 19 17 degrees QTcB Int : 429 ms Normal sinus rhythm with sinus arrhythmia Normal ECG When compared with ECG of 04-Aug-2024 13:59, QT has lengthened Referred By: Ashlyn Meng Electronically Signed By: TRACY TURPIN MD
--- NOTE | 2025-02-23 19:42 | PC.NURSE ---
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 Per [facility], they received a phone call from the patient's mother who lives out of state received a mailed letter from the patient. According to [facility], the mom reports the letter had statements to the affect of by the time you get this I will be gone , insinuating possible thoughts of SI or plans. [employer] went to the patients home for a wellness check and wanted to confirm that he was here. Thus far no one from [facility] has spoken with mom to confirm or gather additional information. Staff unsure as to the date of the written letter.
--- NOTE | 2025-02-23 19:56 | PC.NURSE ---
[employer] came to speak with patient regarding the letter that was received, also prior to arriving to ed they spoke with aunt, hpd left without concerns regarding the letter. patient stated he has no idea what the letter was and who wrote it. patients fiance at bedside stated it could be a revenge letter from someone else, I'm with him all the time and he has not been suicidal. this RN spoke with patient, states he lives with his mother, aunt and sisters so he has no idea who received that letter. [employer] stated call was from someone in [place] who the pt denies knowing. pt has been calm/cooperative. patient denies si/hi, states he does see a therapist and refuses to speak with care team at this time. Ashlyn LLANOS aware.
[2025-02-23 20:08] LABS: INTERNATIONAL NORM RATIO 1.1 (0.9-1.1)
[2025-02-23 20:19] LABS: Alanine Aminotransferase 23 U/L (0-40); Albumin Level 4.6 g/dL (3.5-5.0); Alkaline Phosphatase 77 U/L (39-117); Aspartate Amino Transferase 25 U/L (5-37); Bilirubin Total 0.5 mg/dL (0.0-1.0); Blood Urea Nitrogen 18 mg/dL (9-16); Calcium 9.9 mg/dL (8.4-10.2); Creatinine Clr Calc Pharmacy 108.6; Estimated Glomerular Filt Rate > 60; Glucose Random 87 mg/dL (60-115); Total Protein 8.2 g/dL (6.5-8.0)
[2025-02-23 20:24] LABS: Basophils Absolute Auto 0.1 X10*3/uL (0.0-0.2); Basophils Percent Auto 0.6 % (0-2); Eosinophils Absolute Auto 0.1 X10*3/uL (0.0-0.4); Eosinophils Percent Auto 1.2 % (0-4); Hematocrit 44.1 % (42.0-52.0); Hemoglobin 14.8 g/dl (14.0-18.0); Imm Gran Abs Auto 0.03 X10*3/uL (0.00-0.03); Imm Gran Pct Auto 0.3 % (0.0-0.4); Lymphocytes Absolute Auto 2.4 X10*3/uL (1.2-4.9); Lymphocytes Percent Auto 22.1 % (20-40); Mean Corpuscular HGB Conc 33.6 g/dl (31.0-36.0); Mean Corpuscular Hemoglobin 27.7 pg (27.0-33.0); Mean Corpuscular Volume 82.6 fL (80.0-98.0); Mean Platelet Volume 9.6 fL (9.4-12.4); Monocytes Absolute Auto 1.1 X10*3/uL (0.1-1.2); Neutrophils Absolute Auto 7.2 x10*3/uL (2.0-8.3); Neutrophils Percent Auto 65.8 % (45-73); Platelet Count 292 X10*3/uL (160-400); Red Blood Count 5.34 X10*6/uL (4.60-5.80); Red Cell Distribution Width 13.7 % (11.0-16.0); White Blood Count 10.9 X10*3/uL (4.8-10.8)
[2025-02-23 20:37] LABS: Anion Gap 15 (12-20); Carbon Dioxide 23 mmol/L (22-29); Chloride 106 mmol/L (96-108); Potassium 4.1 mmol/L (3.3-5.1); Sodium 140 mmol/L (135-145)
[2025-02-23 21:47] VITALS: BP 123/76; PULSE 55; RESP 16; TEMP 36.9; O2SAT 99
== END 2025-02-23 21:47 | disposition home or self-care (01) ==
PROVIDERS: Registered Nurse Emergency; Emergency Provider Emergency Medicine; PCP Family Medicine
DX: S00.93XA Contusion of unspecified part of head, initial encounter (principal); W18.30XA Fall on same level, unspecified, initial encounter; Y93.9 Activity, unspecified; Y92.012 Bathroom of single-family (private) house as the place of occurrence of the external cause; Y99.9 Unspecified external cause status
CPT/HCPCS: 36415; 70450; 80053; 85025; 85610; 93005; 99283; 99284

== ENCOUNTER → 2025-02-23 19:19 | Outpatient (BNV) | payer OTHER, SELFPAY | PROVIDERS: PCP Family Medicine; Visit Provider Radiology Diagnostic Radiology | DX: S00.93XA Contusion of unspecified part of head, initial encounter (principal) | CPT/HCPCS: 70450 ==

== ENCOUNTER → 2025-02-23 19:19 | Outpatient (BNV) | payer OTHER, SELFPAY | PROVIDERS: Emergency Provider Emergency Medicine; PCP Family Medicine; Visit Provider Internal Medicine Cardiovascular Disease | DX: R55 Syncope and collapse (principal) | CPT/HCPCS: 93010 ==

== ENCOUNTER 2025-02-24 15:36 | Emergency (ER) | payer OTHER, SELFPAY ==
--- NOTE | ~2025-02-24 | CT_ITS ---
CLINICAL HISTORY: 2nd head injury follow CT yest, +LOC, H A, dizzy CT head without contrast Comparison: Head CT from 02/23/2025 Findings: No acute intracranial hemorrhage. No midline shift or hydrocephalus. Posterior fossa arachnoid cysts measures 8 mm. No arterial territorial infarction by CT. Imaged nasal bone deformities appear old. Partially empty sella. Mild mucosal thickening of the imaged paranasal sinuses. Imaged mastoid air cells are well aerated. No acute skull fracture. IMPRESSION: 1. No acute intracranial abnormality by CT. This document has been electronically signed by: Gonsalo Valencia MD on 02/24/2025 19:51:14
[2025-02-24 16:03] VITALS: BP 106/54; BP 132/88; PULSE 114; PULSE 124; RESP 18; TEMP 36.7; O2SAT 96; O2SAT 98; O2SAT 99; BMI 27.4
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
[2025-02-24 17:26] LABS: MANUAL DIFF FLAG NO
[2025-02-24 17:31] LABS: Appearance Urine Clear; Color Urine Yellow; Glucose Urine UA Negative (Negative); Leukocyte Esterase Urine Negative (Negative); Nitrite Urine Negative (Negative); PH 5.5 (5.0-9.0); Specific Gravity - Urine >= 1.030 (1.005-1.025); UMIC TRIGGER UACC YES; Urine Blood Negative (Negative); Urine Ketones 40 mg/dL (Negative); Urine Protein 30 (1+) mg/dL (Neg-Trace)
[2025-02-24 17:35] LABS: Basophils Absolute Auto 0.1 X10*3/uL (0.0-0.2); Basophils Percent Auto 0.5 % (0-2); Eosinophils Absolute Auto 0.1 X10*3/uL (0.0-0.4); Eosinophils Percent Auto 0.8 % (0-4); Hematocrit 49.6 % (42.0-52.0); Hemoglobin 15.9 g/dl (14.0-18.0); Imm Gran Abs Auto 0.04 X10*3/uL (0.00-0.03); Imm Gran Pct Auto 0.4 % (0.0-0.4); Lymphocytes Percent Auto 19.6 % (20-40); Mean Corpuscular HGB Conc 32.1 g/dl (31.0-36.0); Mean Corpuscular Hemoglobin 26.9 pg (27.0-33.0); Mean Corpuscular Volume 83.8 fL (80.0-98.0); Mean Platelet Volume 10.2 fL (9.4-12.4); Neutrophils Absolute Auto 7.2 x10*3/uL (2.0-8.3); Neutrophils Percent Auto 68.7 % (45-73); Platelet Count 328 X10*3/uL (160-400); Red Blood Count 5.92 X10*6/uL (4.60-5.80); Red Cell Distribution Width 13.9 % (11.0-16.0); White Blood Count 10.4 X10*3/uL (4.8-10.8)
[2025-02-24 17:38] LABS: Amphetamine Screen Urine Not Detected (Not Detect); Barbiturates, Urine Not Detected (Not Detect); Benzodiazepines Screen Urine Not Detected (Not Detect); Buprenorphine Scr Not Detected (Not Detect); Cannabinoid Screen Urine POSITIVE (Not Detect); Cocaine Screen Urine Not Detected (Not Detect); Fentanyl, urine Not Detected (Not Detect); Methadone Screen, Urine Not Detected (Not Detect); Opiate Screen Urine Not Detected (Not Detect); Oxycodone Screen Urine Not Detected (Not Detect); Phencyclidine Screen Urine Not Detected (Not Detect)
[2025-02-24 17:43] LABS: Bacteria Urine None Seen (None Seen); Hyaline Casts Urine 0-2 /LPF (0-2); RBC Urine 0-2 /HPF (0-2); Squamous Epithelial Cell Urine 0-2 /HPF (0-2); WBC Urine 0-5 /HPF (0-5)
[2025-02-24 17:51] LABS: Ethanol < 10 mg/dL
[2025-02-24 17:58] LABS: Alanine Aminotransferase 20 U/L (0-40); Albumin Level 4.9 g/dL (3.5-5.0); Anion Gap 14 (12-20); Aspartate Amino Transferase 24 U/L (5-37); Bilirubin Total 0.6 mg/dL (0.0-1.0); Blood Urea Nitrogen 16 mg/dL (9-16); Calcium 10.2 mg/dL (8.4-10.2); Carbon Dioxide 24 mmol/L (22-29); Chloride 107 mmol/L (96-108); Creatinine Clr Calc Pharmacy 105.6; Estimated Glomerular Filt Rate > 60; Glucose Random 95 mg/dL (60-115); Potassium 4.1 mmol/L (3.3-5.1); Sodium 141 mmol/L (135-145); Total Protein 9.1 g/dL (6.5-8.0)
--- NOTE | 2025-02-24 18:07 | MHC.EDTECH ---
Patient approached this tech concerned with a person Jonna Gilbert/Ashley visiting him. This tech provided name to security and RN.
[2025-02-24 18:15] VITALS: BP 134/80; PULSE 100; RESP 16; TEMP 37.1; O2SAT 96
[2025-02-24 18:52] LABS: Alkaline Phosphatase 79 U/L (39-117)
--- NOTE | 2025-02-24 22:29 | MHC.CARE ---
Patient was evaluated by the Care Team and found appropriate for an inpatient psychiatric admission. Pt will remain on a section 12 pending placement.
[2025-02-24] MEDS: hydrOXYzine HCL 25 MG TABLET PO (23:03)
--- NOTE | 2025-02-24 23:04 | PC.NURSE ---
pt medicated per jan. pt given orange and a drink.
--- NOTE | 2025-02-24 23:26 | PC.NURSE ---
Took over from EVELYN Good, was medicated and now is resting.
[2025-02-25 06:14] VITALS: BP 130/85; PULSE 60; RESP 17; TEMP 37; O2SAT 98
--- NOTE | 2025-02-25 09:24 | PC.NURSE ---
assumed care of pt at 0645. pt appears anxious, making phone calls. pt is requesting to be spoken to again by [facility] team. care team made aware. continue plan of care for inpatient bedsearch
[2025-02-25] MEDS: FLUoxetine HCl Oral Solution 20 MG/5 ML SOLUTION 10 MG PO (09:30)
--- NOTE | 2025-02-25 09:55 | PC.NURSE ---
per care team re-evaluation, pt will be discharged today.
[2025-02-25 09:56] VITALS: BP 131/80; PULSE 59; RESP 16; TEMP 36.8; O2SAT 97
== END 2025-02-25 10:05 | disposition home or self-care (01) ==
PROVIDERS: Emergency Provider Emergency Medicine; PCP Family Medicine
DX: R45.851 Suicidal ideations (principal); F41.9 Anxiety disorder, unspecified; R42 Dizziness and giddiness; R51.9 Headache, unspecified; Z79.899 Other long term (current) drug therapy; Z51.81 Encounter for therapeutic drug level monitoring
CPT/HCPCS: 36415; 70450; 80053; 80307; 81001; 85025; 99285; S9485

== ENCOUNTER → 2025-02-24 18:03 | Outpatient (BNV) | payer OTHER, SELFPAY | PROVIDERS: Emergency Provider Emergency Medicine; PCP Family Medicine; Visit Provider Radiology Neuroradiology | DX: R42 Dizziness and giddiness (principal) | CPT/HCPCS: 70450 ==